=== PATIENT | male | born 1965 | race Caucasian/White ===

== ENCOUNTER → 2019-06-06 10:54 | Outpatient (CLI) | payer OTHER, SELFPAY ==
--- NOTE | 2019-06-06 11:21 | DI.RAD.S_ITS ---
PROCEDURE: XR HAND RT MIN 3V INDICATIONS: arthral TECHNIQUE: 3 views of the hand(s) acquired. COMPARISON: None. FINDINGS: Bones: No fractures or dislocations. Carpal bones are normally aligned. No suspicious bony lesions. No significant degenerative changes of the right hand are appreciated. No osseous erosions are evident. Soft tissues: No suspicious soft tissue calcifications. IMPRESSION: No significant degenerative changes of the hand. No osseous erosions. Dictated by: Ben Mcpherson M.D. on 06/06/2019 at 14:17 Approved by: Ben Mcpherson M.D. on 06/06/2019 at 14:18
--- NOTE | 2019-06-06 11:21 | DI.RAD.S_ITS ---
PROCEDURE: XR HAND LT MIN 3V INDICATIONS: arthral TECHNIQUE: 3 views of the hand(s) acquired. COMPARISON: None. FINDINGS: Bones: No fractures or dislocations. Carpal bones are normally aligned. No suspicious bony lesions. At least mild degenerative changes of the basal joint of the thumb are present. No definite osseous erosions are appreciated. Soft tissues: No suspicious soft tissue calcifications. IMPRESSION: Mild degenerative changes of the left hand. Dictated by: Ben Mcpherson M.D. on 06/06/2019 at 14:20 Approved by: Ben Mcpherson M.D. on 06/06/2019 at 14:21
--- NOTE | 2019-06-06 11:21 | DI.RAD.S_ITS ---
PROCEDURE: XR KNEE RT 3V INDICATIONS: arthral TECHNIQUE: 3 views of the knee were acquired. COMPARISON: [facility], , KNEE 3V RIGHT, 08/15/2011, 10:34. FINDINGS: Bones: No fractures or dislocations. No suspicious bony lesions. Bone mineralization is within normal limits. No osseous erosions are identified. Small developing marginal osteophytes are noted within the distal femoral compartment along the margins of the articular surface of the patella. Soft tissues: No joint effusion. No suspicious soft tissue calcifications. IMPRESSION: Early degenerative changes of the patellofemoral compartment. Dictated by: Ben Mcpherson M.D. on 06/06/2019 at 14:21 Approved by: Ben Mcpherson M.D. on 06/06/2019 at 14:22
--- NOTE | 2019-06-06 11:21 | DI.RAD.S_ITS ---
PROCEDURE: XR ANKLE RT MIN 3V INDICATIONS: arthral TECHNIQUE: 3 views of the ankle were acquired. COMPARISON: [facility], CR, FOOT 3V RIGHT, 09/18/2011, 13:11. FINDINGS: Bones: No fractures or dislocations. Ankle mortise is normally aligned. No suspicious bony lesions. No significant degenerative changes are present. No osseous origins are identified. Soft tissues: No tibiotalar joint effusion. Achilles tendon appears normal. IMPRESSION: Unremarkable right ankle radiographs. Dictated by: Ben Mcpherson M.D. on 06/06/2019 at 14:18 Approved by: eBn Mcpherson M.D. on 06/06/2019 at 14:19
--- NOTE | 2019-06-06 11:21 | DI.RAD.S_ITS ---
PROCEDURE: XR KNEE LT 3V INDICATIONS: arthral TECHNIQUE: 3 views of the knee were acquired. COMPARISON: [facility], , KNEE 3V LEFT, 08/15/2011, 10:33. FINDINGS: Bones: No fractures or dislocations. No suspicious bony lesions. No osseous erosions are evident. There may be an early developing marginal osteophytes within the patellofemoral compartment. The joint spaces are well-maintained. Soft tissues: No joint effusion. No suspicious soft tissue calcifications. IMPRESSION: Possible early degenerative changes of the patellofemoral compartment of the left knee. Dictated by: Ben Mcpherson M.D. on 06/06/2019 at 14:19 Approved by: Ben Mcpherson M.D. on 06/06/2019 at 14:20
--- NOTE | 2019-06-06 11:21 | DI.RAD.S_ITS ---
PROCEDURE: XR ANKLE LT MIN 3V INDICATIONS: arthral TECHNIQUE: 3 views of the ankle were acquired. COMPARISON: None. FINDINGS: Bones: No fractures or dislocations. Ankle mortise is normally aligned. No suspicious bony lesions. No significant degenerative changes of the midfoot or hindfoot joints are appreciated. The bone mineralization is within normal limits. No osseous erosions are evident. Soft tissues: No tibiotalar joint effusion. Achilles tendon appears normal. IMPRESSION: Unremarkable left ankle radiographs. Dictated by: Ben Mcpherson M.D. on 06/06/2019 at 14:18 Approved by: Ben Mcpherson M.D. on 06/06/2019 at 14:18
[2019-06-06 12:31] LABS: Alanine Aminotransferase 26 IU/L (<50); Albumin Globulin Ratio 1.6 (1.0-2.8); Alkaline Phosphatase 107 U/L (38-126); Aspartate Aminotransferase 18 IU/L (17-59); BUN Creatinine Ratio 17.1 (6-22); Bilirubin Total 0.7 mg/dL (0.2-1.3); Blood Urea Nitrogen 12 mg/dL (9-20); C-Reactive Protein Quant 0.8 mg/dL (<1.0); Calcium 9.7 mg/dL (8.4-10.2); Carbon Dioxide 29 mmol/L (22-32); Chloride 93 mmol/L (98-107); Estimated Glomerular Filt Rate > 60.0 mL/min (>60); Globulin 3.1 g/dL (1.7-4.1); HDL Cholesterol 43 mg/dL (40-60); HEMOLYSIS < 15 (0-50); Potassium 4.3 mmol/L (3.4-5.1); Sodium 135 mmol/L (137-145); Total Protein 8.1 g/dL (6.3-8.2); Uric Acid 3.1 mg/dL (3.5-8.5)
[2019-06-06 12:37] LABS: Add Manual Diff / Slide Review NO; Basophils Absolute Auto 0 /uL (0-100); Basophils Percent Auto 0.5 % (0-2); Eosinophils Absolute Auto 100 /uL (0-450); Eosinophils Percent Auto 1.5 % (2-4); Hemoglobin 16.1 g/dL (13.5-17.5); Lymphocytes Absolute Auto 2100 /uL (1100-4500); Lymphocytes Percent Auto 26.9 % (25-40); Mean Corpuscular HGB Conc 35.7 % (30-36); Mean Corpuscular Hemoglobin 32.5 PG (26-34); Mean Corpuscular Volume 90.9 fL (80-100); Monocytes Absolute Auto 500 /uL (0-900); Monocytes Percent Auto 5.9 % (3-14); Neutrophils Absolute Auto 5200 /uL (1500-7000); Neutrophils Percent Auto 65.2 % (50-75); Platelet Count 280 X10^3/uL (150-400); Red Blood Cell Count 4.96 X10^6/uL (4.5-5.9); Red Cell Distribution Width 12.7 % (11.6-14.8)
[2019-06-06 12:45] LABS: Cholesterol 357 mg/dL (140-199); Glucose 504 mg/dL (70-100); Triglycerides 660 mg/dL (35-150)
[2019-06-06 12:47] LABS: Hemoglobin A1C% w Est Avg Glu > 14.0 % (4.0-6.0); Rheumatoid Factor < 8.5 IU/mL (<12.0)
[2019-06-06 13:00] LABS: Prostate Specific Antigen Scrn 1.04 ng/mL (0.1-4.0); Thyroid Stimulating Hormone 1.47 uIU/mL (0.47-4.68)
[2019-06-06 13:03] LABS: Erythrocyte Sedimentation Rate 11 MM/HR (0-15)
[2019-06-08 22:45] LABS: ANA Screen, IFA NEGATIVE (NEGATIVE)
== END ==
PROVIDERS: PCP Family Medicine; Visit Provider Family Medicine
DX: M25.50 Pain in unspecified joint (principal)
CPT/HCPCS: 36415; 73130; 73562; 73610; 80053; 80061; 83036; 84443; 84550; 85025; 85651; 86038; 86140; 86430; G0103

== ENCOUNTER → 2019-06-24 10:51 | Outpatient (CLI) | payer OTHER, SELFPAY ==
[2019-06-24 12:52] LABS: Hemoglobin A1C% w Est Avg Glu 13.7 % (4.0-6.0)
[2019-06-24 13:13] LABS: BUN Creatinine Ratio 25.7 (6-22); Blood Urea Nitrogen 18 mg/dL (9-20); Calcium 9.4 mg/dL (8.4-10.2); Carbon Dioxide 26 mmol/L (22-32); Chloride 98 mmol/L (98-107); Estimated Glomerular Filt Rate > 60.0 mL/min (>60); Glucose 284 mg/dL (70-100); HEMOLYSIS < 15 (0-50); Potassium 4.7 mmol/L (3.4-5.1); Sodium 136 mmol/L (137-145)
[2019-06-24 13:53] LABS: Thyroid Stimulating Hormone 0.63 uIU/mL (0.47-4.68)
[2019-06-24 14:18] LABS: Folate > 20.0 ng/mL (2.76-20.0); Vitamin B12 728 pg/mL (239-931)
== END ==
PROVIDERS: PCP Family Medicine; Visit Provider Family Medicine
DX: E11.9 Type 2 diabetes mellitus without complications (principal); E78.2 Mixed hyperlipidemia; I10 Essential (primary) hypertension; R20.0 Anesthesia of skin; R20.2 Paresthesia of skin; R61 Generalized hyperhidrosis
CPT/HCPCS: 36415; 80048; 82607; 82746; 83036; 84443

== ENCOUNTER → 2019-07-06 13:52 | Outpatient (CLI) | payer OTHER, SELFPAY ==
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
== END ==
PROVIDERS: PCP Family Medicine; Visit Provider Family Medicine
DX: E11.21 Type 2 diabetes mellitus with diabetic nephropathy (principal); Z79.84 Long term (current) use of oral hypoglycemic drugs; Z71.3 Dietary counseling and surveillance
CPT/HCPCS: G0108

== ENCOUNTER → 2019-07-12 14:27 | Outpatient (CLI) | payer OTHER, SELFPAY ==
--- NOTE | 2019-07-12 15:58 | DIET.PN ---
Diabetes: Healthy Eating 1 Intervention: ?Discussed pathophysiology of diabetes and impact of nutrition/diet on blood sugar control.? Discussed fed versus non-fed state.?? ?Deviewed importance of Balance, Variety, and Moderation. ?Discussed the effect of carbohydrates/protein/fat on blood sugar control.? ?Stressed importance of consistent carbohydrate intake at each meal and provided instructions for recommended servings/portions of carbohydrates/protein per meal. Provided educational material. ?Reviewed carbohydrate counting and measuring carbohydrate content via serving sizes and reading nutrition labels.? Provided handouts.?? ?Discussed the difference between simple versus complex carbohydrates and the effect of fiber on blood sugar control.? Discussed various methods to increase fiber content in diet. ?Discussed the plate method for creating more carbohydrate conscious balanced meals. ?Stressed importance of meal timing and not going >4-5 hours between meals. Encouraged adding protein to evening snack to support glucose control overnight. ?Discussed importance of making dietary habits part of lifestyle change.
== END ==
PROVIDERS: PCP Family Medicine; Visit Provider Family Medicine
DX: E11.21 Type 2 diabetes mellitus with diabetic nephropathy (principal); Z71.3 Dietary counseling and surveillance
CPT/HCPCS: G0109

== ENCOUNTER → 2019-07-22 09:42 | Outpatient (CLI) | payer OTHER, SELFPAY ==
--- NOTE | 2019-07-22 12:58 | DIET.PN ---
Diabetes: Healthy Eating 2 Intervention: Fats effects on glucose, weight, heart disease, cholesterol Sat Vs Unsat Protein- animal and plant based options Low, med, high fat meats Sugar substitutes Sodium Health claims Grocery shopping guidelines Eating away from home Alcohol Sick day guidelines
== END ==
PROVIDERS: PCP Family Medicine; Visit Provider Family Medicine
DX: E11.21 Type 2 diabetes mellitus with diabetic nephropathy (principal); Z71.3 Dietary counseling and surveillance
CPT/HCPCS: G0109

== ENCOUNTER → 2019-09-19 10:42 | Outpatient (CLI) | payer OTHER, SELFPAY ==
[2019-09-19 12:56] LABS: BUN Creatinine Ratio 23.8 (6-22); Blood Urea Nitrogen 19 mg/dL (9-20); Calcium 10.4 mg/dL (8.4-10.2); Carbon Dioxide 26 mmol/L (22-32); Chloride 97 mmol/L (98-107); Cholesterol 141 mg/dL (140-199); Estimated Glomerular Filt Rate > 60.0 mL/min (>60); Glucose 172 mg/dL (70-100); HDL Cholesterol 46 mg/dL (40-60); HEMOLYSIS 21 (0-50); LDL Cholesterol Calculated 48 mg/dL (<100); Potassium 4.5 mmol/L (3.4-5.1); Sodium 139 mmol/L (137-145); Triglycerides 235 mg/dL (35-150)
== END ==
PROVIDERS: PCP Family Medicine; Referring Provider Family Medicine; Visit Provider Family Medicine
DX: E11.9 Type 2 diabetes mellitus without complications (principal)
CPT/HCPCS: 36415; 80048; 80061; 83036

== ENCOUNTER → 2020-05-17 10:24 | Outpatient (CLI) | payer OTHER, SELFPAY ==
--- NOTE | 2020-05-17 10:29 | DI.RAD.S_ITS ---
PROCEDURE: XR KNEE RT 3V INDICATIONS: Back Pain TECHNIQUE: 3 views of the knee were acquired. COMPARISON: [facility], CR, XR KNEE LT 3V, 06/06/2019, 11:48. FINDINGS: Bones: No fracture. Scattered degenerative subchondral sclerosis and spurring. Soft tissues: No joint effusion. No suspicious soft tissue calcifications. IMPRESSION: Mild degenerative changes as above. If the patient's pain or other symptoms persist, consider further evaluation with MRI Dictated by: Henry Renee M.D. on 05/17/2020 at 14:30 Approved by: Henry Renee M.D. on 05/17/2020 at 14:40
--- NOTE | 2020-05-17 10:29 | DI.RAD.S_ITS ---
PROCEDURE: XR HIP W PEL IF DONE LT MIN 4V INDICATIONS: Back Pain TECHNIQUE: AP pelvis with lateral view(s) of the left and right hip(s). COMPARISON: None. FINDINGS: Bones: No fractures or dislocations. Pelvic ring appears intact. No suspicious bony lesions. Chronic right hamstring origin tendinopathy, with associated calcification. Lumbar spondylosis and facet arthropathy. Mild bilateral hip joint degeneration Soft tissues: The visualized bowel gas pattern is normal. No suspicious soft tissue calcifications. IMPRESSION: Mild bilateral hip joint degeneration. Lower lumbar spondylosis and facet arthropathy. Dictated by: Henry Renee M.D. on 05/17/2020 at 13:58 Approved by: Henry Renee M.D. on 05/17/2020 at 14:00
--- NOTE | 2020-05-17 10:29 | DI.RAD.S_ITS ---
PROCEDURE: XR LUMBAR SPINE 2-3V INDICATIONS: Back Pain TECHNIQUE: 3 views of the lumbar spine were acquired. COMPARISON: [facility], CR, XR LUMBAR SPINE WITH OLBIQUES PLUS FLEXION EXTENSION, 02/27/2020, 13:20. FINDINGS: Bones: No fracture. Multilevel degenerative endplate sclerosis and spurring. Diffuse facet arthropathy. Mild narrowing of the L4-L5 and L5-S1 disc spaces. Trace anterolisthesis of L5 on S1. Soft tissues: Overlying bowel gas pattern is normal. No suspicious soft tissue calcifications. IMPRESSION: Multilevel lumbar spondylosis and facet arthropathy. No interval change. Dictated by: Henry Renee M.D. on 05/17/2020 at 13:55 Approved by: Henry Renee M.D. on 05/17/2020 at 13:57
--- NOTE | 2020-05-17 10:29 | DI.RAD.S_ITS ---
PROCEDURE: XR KNEE LT 3V INDICATIONS: Back Pain TECHNIQUE: 3 views of the knee were acquired. COMPARISON: [facility], , XR KNEE LT 3V, 06/06/2019, 11:48. FINDINGS: Bones: No fracture. Scattered degenerative subchondral sclerosis and spurring. Mild lateral patellar tilt which is unchanged Soft tissues: No joint effusion. No suspicious soft tissue calcifications. IMPRESSION: Mild degenerative changes as above. Dictated by: Henry Renee M.D. on 05/17/2020 at 14:40 Approved by: Henry Renee M.D. on 05/17/2020 at 14:41
[2020-05-17 12:18] LABS: BUN Creatinine Ratio 25.6 (6-22); Blood Urea Nitrogen 21 mg/dL (9-20); Calcium 9.6 mg/dL (8.4-10.2); Carbon Dioxide 34 mmol/L (22-32); Chloride 99 mmol/L (98-107); Estimated Glomerular Filt Rate > 60.0 mL/min (>60); Glucose 126 mg/dL (70-100); HEMOLYSIS < 15 (0-50); Potassium 4.3 mmol/L (3.4-5.1); Sodium 137 mmol/L (137-145)
[2020-05-17 12:27] LABS: Hemoglobin A1C% w Est Avg Glu 6.2 % (4.0-6.0)
== END ==
PROVIDERS: PCP Family Medicine; Referring Provider Family Medicine; Visit Provider Family Medicine
DX: M54.5 Low back pain (principal); E11.9 Type 2 diabetes mellitus without complications
CPT/HCPCS: 36415; 72100; 73522; 73562; 80048; 83036

== ENCOUNTER 2020-08-31 10:30 | Outpatient (RCR) | payer OTHER, SELFPAY ==
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
--- NOTE | 2020-08-20 17:25 | PT.OPPOC ---
Physical, Occupational & Speech Therapy At [facility] Current Diagnoses Other chronic pain (08/20/20) Pain in unspecified joint (08/20/20) Pain in right knee (08/20/20) Pain in left knee (08/20/20) Dorsalgia, unspecified (08/20/20) Muscle weakness (generalized) (08/20/20) Abnormal posture (08/20/20) Visit Care Team Role Provider Type Ralf Rosa DO Attending Provider Physician Family Provider Primary Care Provider Referring Provider Specialty: Family Practice Address: [address] [place] [address], [facility] Email: Plan Of Care PT-OP-T Assessment and Plan Start: 08/14/20 18:06 Freq: Status: Active Protocol: Document 08/20/20 10:40 LRN (Rec: 08/20/20 12:19 LRN [id number]) Physical Therapy Assessment Rehab Potential Rehabilitation Potential Fair Evaluation Complexity Number of Personal Factors/Comorbidities 3 or More Number of Body Systems Impaired 4 or More Clinical Presentation at Evaluation Evolving Impairments Impairments Activity Tolerance,Gait,Pain, Posture,ROM,Soft Tissue Mobility,Strength Goals Two Impairment LE pain/sensation changes. Short Term Goal (STG) Pt will be educated in self usp program of soft tissue mobilization. STG Duration 09/03/20 Short Order Fry Cook Goal (LTG) Pt will be able to ween from his pain medication (pt reports oxycodone). LTG Duration 09/24/20 One Impairment Lacks appropriate self care HEP Short Term Goal (STG) Pt will be independent in a self care HEP of therapeutic exercise. STG Duration 08/27/20 Care Home Goal (LTG) Pt will be able to walk to mailbox and back with pain less than 9/10. LTG Duration 09/24/20 Assessment Summary Assessment Pt's LE pain was reproduced primarily with ambulation. His ankle pain was reproduced with muscle testing of the ankle PF's & DF's, knee pain was not reproduced during knee assessment. He demonstrated a +Slump Test bilaterally but his PSLR was 65 deg's left and 70 deg's right showing a possible low back involvement on primarily on the left side. No other significant signs presented as low back involvement. He has tightness and weakness of his hips bilaterally and is very sensitive to pressure on his tissues of the lower legs, which might lead me to think he has general soft tissue dysfunction. His sensation changes are in not a specific dermatome; therefore doesn't appear to be lumbar neural related. The pt is very financially limited; therefore he will be limited in his benefit from physical therapy treatment of being placed on a self care HEP in 1-2 visits. The keno terminal operator goals are what the pt can work to achieve on his own. He would benefit from follow up visits in the future for progression of his program if shows improvement on his own HEP. The pt feels returning to therapy will depend on his financial status. Physical Therapy Plan Frequency and Duration Frequency of Treatment 1x/Week Plan of Care Start Date 08/20/20 Plan of Care End Date 09/24/20 Therapeutic Interventions Therapeutic Interventions Home Exercise Program,Manual Therapy,Patient/Caregiver Education,Self-Care/Home Management,Soft Tissue Mobilization,Therapeutic Exercises Modalities Cold Pack/Ice Massage,Hot Packs Next Visit Focus/Plan Next Note Type Treatment Note Next Visit Plan HEP next visit, with follow up visit for self care STM if pt feels he is financially able to return. HEP: Bilateral hip ROM and strengthening, bilateral knee ROM and strengthening for stair ambulation (L knee flexion weaker than R), and ankle ROM exercises. Teach best way to get up off floor to minimize pain. If 2nd visit: teach STM to lower legs (gastrocnemius) , hot/cold education of contrast bath to improve sensation, and to teach proper posturing and body mechanics to minimize stress on knees, ankles and feet as possible. Plan of Care Dates Plan of Care Start Date 08/20/20 Plan of Care End Date 09/24/20 Electronically Signed by: Delia Bajwa, PT 08/23/20 3035 Please Sign and Return: I have reviewed this Plan of Care and certify that the skilled therapy services above are required to meet the patient?s needs. Physician Signature Date Printed Name and Credentials Clinical Instructor Signature Printed Name and Credentials
--- NOTE | 2020-08-31 12:17 | PT-OP ANOTE ---
Pt called to request cancel of next appointment and hold open of his chart until he hears back from his insurance on coverage for therapy. Pt informed that if we do not hear back from him before 09/24/20 (POC expiration), then he would be discharged from therapy. Pt agreeable and states he will call back after he figures out his insurance and costs.
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
--- NOTE | 2020-10-16 16:53 | PT-OP ANOTE ---
Message was left 09/07/20 requesting cancel of appointment with message he will call when insurance will pay. Pt has not called back; therefore will discharge pt due to lack of attendance.
--- NOTE | 2020-10-16 16:58 | PT-OP ANOTE ---
Msg left informing pt if he does not call back to inform if he will be coming back to therapy by end of week (10/19/20), he will be discharged from therapy and to restart therapy he will need a new referral.
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
== END 2020-10-26 08:30 ==
LOC: PHYS 10:30
PROVIDERS: Family Provider Family Medicine; PCP Family Medicine; Referring Provider Family Medicine; Visit Provider Family Medicine
DX: M25.561 Pain in right knee (principal); M25.562 Pain in left knee; G89.29 Other chronic pain; M54.9 Dorsalgia, unspecified; M25.50 Pain in unspecified joint; M62.81 Muscle weakness (generalized); R29.3 Abnormal posture
CPT/HCPCS: 97110; 97162; 97535

== ENCOUNTER → 2020-10-15 08:59 | Outpatient (CLI) | payer OTHER, SELFPAY ==
[2020-10-15 09:59] LABS: Hemoglobin A1C% w Est Avg Glu 5.9 % (4.0-6.0)
[2020-10-15 10:10] LABS: Erythrocyte Sedimentation Rate 4 MM/HR (0-15)
[2020-10-15 10:58] LABS: Cholesterol 263 mg/dL (140-199); HDL Cholesterol 55 mg/dL (40-60); LDL Cholesterol Calculated 166 mg/dL (<100); Triglycerides 212 mg/dL (35-150)
[2020-10-15 10:59] LABS: C-Reactive Protein Quant < 0.5 mg/dL (<1.0)
[2020-10-15 11:28] LABS: TSH w/ Reflex to FT4 0.85 uIU/mL (0.47-4.68)
[2020-10-17 15:08] LABS: ANA Screen, IFA Negative (.)
== END ==
PROVIDERS: Family Provider Family Medicine; PCP Family Medicine; Referring Provider Family Medicine; Visit Provider Family Medicine
DX: E11.9 Type 2 diabetes mellitus without complications (principal); E78.2 Mixed hyperlipidemia; F41.9 Anxiety disorder, unspecified; I10 Essential (primary) hypertension; G89.4 Chronic pain syndrome; R29.898 Other symptoms and signs involving the musculoskeletal system
CPT/HCPCS: 36415; 80061; 83036; 84443; 85651; 86038; 86140

== ENCOUNTER → 2020-11-28 09:54 | Outpatient (CLI) | payer OTHER, SELFPAY ==
--- NOTE | 2020-11-28 09:57 | DI.MRI.S_ITS ---
PROCEDURE: MR LUMBAR SPINE WO CON INDICATIONS: bilateral leg weakness and pain TECHNIQUE: Noncontrast sagittal T1 spin echo and T2 fast echo, sagittal STIR, axial T1 and T2 fast spin echo through the lumbar spine. In cases with scoliosis, additional coronal T2 fast spin echo may be performed. The patient declined the scheduled contrast injection and this study was performed without IV contrast. COMPARISON: [facility], CT, ABDOMEN/PELVIS WITH CONTRAST, 11/13/2007, 21:12. [facility], CR, XR LUMBAR SPINE 2-3V, 05/17/2020, 11:04. FINDINGS: Image quality: Diagnostic, with note made of motion artifact. Alignment and Curvature: There is normal bony alignment. Bone Marrow: Marrow is of normal overall signal. No acute vertebral body compression fractures. Spinal Cord: Conus medullaris terminates at the T12-L1 level. Visualized cord demonstrates normal signal and size. Paraspinous Soft Tissues: No paravertebral masses. T12-L1: Normal appearance. L1-L2: The disc height is well-preserved. Loss of disc signal is seen at this level. A minimal to mild disc bulge is seen, with a right foraminal disc protrusion. There is mild facet hypertrophy seen. There is moderate bilateral neural foraminal narrowing seen. No significant central canal narrowing is seen. L2-L3: The disc height is well-preserved. Loss of disc signal is seen at this level. Mild to moderate disc bulge is seen, which is eccentric to the right. Mild to moderate facet hypertrophy is seen. There is moderate right-sided and [id number] left-sided neural foraminal narrowing seen. Mild central canal narrowing is seen. L3-L4: The disc height is well-preserved. Loss of disc signal is seen at this level. Mild to moderate disc bulge is seen, which is eccentric to the right. Mild to moderate facet hypertrophy is seen. Moderate bilateral neural foraminal narrowing is seen. Minimal central canal narrowing is seen. L4-L5: The disc height is well-preserved. Loss of disc signal is seen at this level. Moderate disc bulge is seen, with a central disc protrusion. There is an associated annular fissure seen, as on series 2, image 10. Mild to moderate facet hypertrophy is seen. There is at least moderate bilateral neural foraminal narrowing seen, right worse than left. There is a mild degree of compression seen upon the exiting right L4 nerve root. Mild to moderate central canal narrowing is seen. L5-S1: The disc height and disc signal are relatively well preserved. Mild generalized disc bulge is seen. There is moderate right-sided and mild left-sided facet hypertrophy seen. There is minimal left-sided and moderate right-sided neural foraminal narrowing seen. No significant central canal narrowing is seen. IMPRESSION: Multiple levels of lumbar spine degenerative change are seen, which are likely age-appropriate. At L4-L5, there is a degree of compression seen upon the exiting right L4 nerve root. An annular fissure can be seen posteriorly at L4-L5. Dictated by: Ra Guthrie M.D. on 11/28/2020 at 9:53 Approved by: Ra Guthrie M.D. on 11/28/2020 at 9:59
== END ==
PROVIDERS: Family Provider Family Medicine; PCP Family Medicine; Referring Provider Family Medicine; Visit Provider Family Medicine
DX: G89.4 Chronic pain syndrome (principal); R29.898 Other symptoms and signs involving the musculoskeletal system; M51.36 Other intervertebral disc degeneration, lumbar region; R53.1 Weakness
CPT/HCPCS: 72148

== ENCOUNTER → 2021-04-30 09:57 | Outpatient (CLI) | payer OTHER, SELFPAY ==
[2021-04-30 10:48] LABS: Hemoglobin A1C% w Est Avg Glu 7.7 % (4.0-6.0)
[2021-04-30 11:11] LABS: Cholesterol 130 mg/dL (140-199); HDL Cholesterol 55 mg/dL (40-60); LDL Cholesterol Calculated 30 mg/dL (<100); Triglycerides 224 mg/dL (35-150)
[2021-05-01 19:12] LABS: Lead, Blood < 1 ug/dL (0-4)
== END ==
PROVIDERS: PCP Family Medicine; Referring Provider Family Medicine; Visit Provider Family Medicine
DX: E11.9 Type 2 diabetes mellitus without complications (principal); E78.2 Mixed hyperlipidemia; I10 Essential (primary) hypertension; M25.50 Pain in unspecified joint; M79.10 Myalgia, unspecified site; R41.3 Other amnesia; Z77.011 Contact with and (suspected) exposure to lead
CPT/HCPCS: 36415; 80061; 82175; 83036; 83655; 83825

== ENCOUNTER 2021-11-16 18:10 | Emergency (ER) | payer OTHER, SELFPAY ==
[2021-11-16] VITALS (48 sets, daily range): BP systolic 90–151; BP diastolic 54–88; PULSE 84–118; RESP 11–39; TEMP 37.7; O2SAT 94–100; BMI 32.1
--- NOTE | 2021-11-16 | DI.CT.S_ITS ---
PROCEDURE: CT HEAD/BRAIN WO CON INDICATIONS: FALL TECHNIQUE: Noncontrast 4.5 mm thick angled axial sections acquired from the foramen magnum to the vertex, with coronal and sagittal reformats. For radiation dose reduction, the following was used: automated exposure control, adjustment of mA and/or kV according to patient size. COMPARISON: None. FINDINGS: Image quality: Excellent. CSF spaces: Basal cisterns are patent. No extra-axial fluid collections. The ventricles are symmetric in size and shape. Brain: No intracranial bleeds or masses. There is cerebral volume loss for age, with resultant ventricular and sulcal prominence. There are periventricular and deep white matter chronic small vessel ischemic changes. Skull and face: Calvarium and visualized facial bones appear intact, without suspicious lesions. Sinuses: Visualized sinuses and mastoids are clear. IMPRESSION: No evidence acute intracranial process. Dictated by: Sergio Bowen M.D. on 11/16/2021 at 19:17 Approved by: Sergio Bowen M.D. on 11/16/2021 at 19:18
--- NOTE | 2021-11-16 18:23 | DI.RAD.S_ITS ---
PROCEDURE: XR CHEST 1V INDICATIONS: suspected sepsis TECHNIQUE: One view of the chest was acquired. COMPARISON: None. FINDINGS: Surgical changes and devices: None. Lungs and pleura: Lungs are clear. No pleural effusions or pneumothorax. Mediastinum: Mediastinal contours appear normal. Heart size is normal. Bones and chest wall: No suspicious bony lesions. Overlying soft tissues appear unremarkable. IMPRESSION: No evidence acute pulmonary process. Dictated by: Sergio Bowen M.D. on 11/16/2021 at 19:17 Approved by: Sergio Bowen M.D. on 11/16/2021 at 19:17
--- NOTE | 2021-11-16 18:27 | DI.CT.S_ITS ---
PROCEDURE: CT SOFT TISSUE NECK W CON INDICATIONS: large dental abscess, tense left anterior neck TECHNIQUE: After the administration of intravenous contrast, 3.0 mm axial sections acquired from the sella to the aortic arch. Additional oblique axial 3.0 mm sections acquired through the pharynx. 3 mm thick coronal and sagittal reformats were generated. For radiation dose reduction, the following was used: automated exposure control. COMPARISON: None. FINDINGS: Image quality: Excellent. Lymph nodes: Reactive left cervical adenopathy. No lymph nodes suspicious for malignancy. Vessels: Visualized vasculature appears patent. Neck spaces: The oropharynx, nasopharynx, and pharynx demonstrate no mucosal lesions. However, the airway is deviated slightly to the right and at gets quite narrowed The vocal cords, false vocal cords, pyriform sinuses, epiglottis, vallecula, and tongue base all appear normal. Extramucosal spaces appear unremarkable. Glands: The parotid and submandibular glands appear normal. Thyroid gland is unremarkable as visualized. Miscellaneous: Visualized brain and orbits appear normal. Lung apices appear clear. There is extensive gas in the tissues immediately inferior to the left body of the mandible with gas present medial to the left body of mandible at the base of the tongue. The most posterior left inferior molar has significant periapical lucency. There is a cavity within this tooth. There is a probable periapical abscess. Bones: No suspicious bony lesions. Visualized sinuses and mastoids appear unremarkable. IMPRESSION: 1. Extensive gas present in the tissues superficial and deep to the body of the left mandible.. Consider necrotizing fasciitis of the tissues subjacent to the mandible. There is a probable periapical abscess involving the most posterior inferior left tooth. 2. There is mild deviation of the air column to the right and there is narrowing of the air,. Comment: Findings were discussed with Dr. Gonzales on 11/16/2021 at 1929 hours. Dictated by: Sergio Bowen M.D. on 11/16/2021 at 19:18 Approved by: Sergio Bowen M.D. on 11/16/2021 at 19:32
--- NOTE | 2021-11-16 18:30 | PC.NURSE ---
Pt has history of broken tooth. Reports 3 days ago noticed some swelling in his neck which has continued to increase. Pt has hard, palpable area from left jaw around front of neck, painful to touch. Denies difficulty breathing or swallowing. Has been eating soft foods and drinking without issue at home.
[2021-11-16] MEDS: KETOROLAC 30 MG/ML VIAL 15 MG IV (18:43)
[2021-11-16] MEDS: SODIUM CHLORIDE 0.9% 1,914 ML 638 ML IV (18:59)
[2021-11-16] MEDS: dexAMETHasone 20 MG in SODIUM CHLORIDE 0.9% 50 ML 208 ML IV (19:00)
--- NOTE | 2021-11-16 19:05 | ED_ITS ---
HPI - Dental/Oral General Chief complaint: Dental/Oral Stated complaint: Abcess molar left lower Time Seen by Provider: 11/16/21 18:27 Source: patient and family Mode of arrival: Wheelchair History of Present Illness HPI Narrative: 56-year-old male nonsmoker with a history of bilateral leg weakness, chronic pain, disc degeneration, polyneuropathy, type 2 diabetes, hyperlipidemia presents with family in the chief complaint of pain and swelling in his left anterior neck over the past few days. He states that he has had dental problems for quite some time and felt a tooth fracture. Since then he has developed swelling. He is having a hard time opening his jaw but denies any difficulty swallowing, controlling secretions or breathing. He denies fever but has had chills. He has had no nausea or vomiting but feels generally weak. He is not dizzy but is overall feeling unwell, he did fall yesterday and thinks he struck his head, stating fall was not associated with loss of consciousness, nausea or vomiting. He takes no blood thinners. Related Data Home Medications Medication Instructions Recorded Confirmed docusate sodium 100 mg capsule 100 mg PO .COMPLEX PRN #0 08/10/20 11/16/21 sennosides 8.6 mg-docusate sodium 1 tab-cap PO .COMPLEX 08/10/20 11/16/21 50 mg tablet (Colace 2-In-1) Previous Rx's Medication Instructions Recorded flash glucose sensor (FreeStyle #2 each 09/21/19 Alex 14 Day Sensor) blood sugar diagnostic (Precision #400 ea 07/24/20 Point Of Care Test) lancets 31 gauge #400 ea 07/24/20 dicyclomine 10 mg capsule 10 mg PO BID PRN #60 cap 01/24/21 flash glucose scanning reader #1 each 02/22/21 (FreeStyle Alex 14 Day Magnolia) tadalafil 5 mg tablet (Cialis) 5 mg PO DAILY PRN #20 tab 03/06/[address] #1 ea 05/02/21 metformin 1,000 mg tablet 1,000 mg PO BID #180 tab 05/02/21 flash glucose sensor (FreeStyle #2 each 06/28/21 Alex 14 Day Sensor) bupropion HCl 150 mg 24 hr tablet, 150 mg PO QAM #90 tab 12/20/21 extended release (Wellbutrin XL) rosuvastatin 10 mg tablet 10 mg PO DAILY #90 tab 08/26/21 omeprazole 20 mg capsule,delayed 20 mg PO BID PRN #180 cap 10/09/21 release amitriptyline 100 mg tablet 100 mg PO BEDTIME #90 tab 10/11/21 clonazepam 0.5 mg tablet 0.5 mg PO TID PRN #90 tab 10/11/21 duloxetine 60 mg capsule,delayed See Rx Instructions .ROUTE 10/11/21 release .COMPLEX #90 cap meloxicam 15 mg tablet 15 mg PO DAILY PRN #90 tab 10/18/21 Allergies Allergy/AdvReac Type Severity Reaction Status Date / Time ERYTHROMYCIN Allergy Mild GI Uncoded 11/16/21 17:46 ORAL STEROID Allergy Mild Uncoded 11/16/21 17:46 PENICILLIN Allergy Mild RASH Uncoded 11/16/21 17:46 Review of Systems Review of Systems Narrative: GENERAL: See HPI HEENT: See HPI RESPIRATORY: Denies dyspnea, cough, wheezing, hemoptysis, sputum. CARDIOVASCULAR: Denies chest pain, palpitations, orthopnea, edema, GASTROINTESTINAL: Denies nausea, vomiting, abdominal pain, diarrhea, constipation, melena. : Denies dysuria, frequency, incontinence, hematuria, urinary retention. MUSCULOSKELETAL: denies weakness, joint pain, or bony pain SKIN: Denies rash, skin lesions, or other NEUROLOGIC: Denies weakness, headache, numbness, change in speech, confusion, seizures, incoordination. PSYCHIATRIC: No concerning psychosocial issues. 12 point review of systems is negative except for those stated above Patient History Medical History (Updated 11/16/21 @ 21:15 by Brendan Gonzales DO) Bilateral foot pain Bilateral hand pain Bilateral knee pain Bilateral leg weakness Chronic hip pain, bilateral Chronic pain syndrome Constipation Disc degeneration, lumbar Dysesthesia Erectile dysfunction Polyneuropathy Surgical History History of placement of ear tubes (Unknown) History of tonsillectomy Family History Mother Age: 92 Alzheimer's disease Stroke Social History Smoking Status: Never smoker eating out: rarely or never Type(s) of exercise: walking Smoking Status: Never smoker alcohol intake frequency: 0-2 drinks per day Substance Use Type: does not use Exam Narrative Exam Narrative: GENERAL: [56] year old patient appears stated age. Well-developed patient, in mild distress. HEAD: Atraumatic. Normocephalic. EYES: Pupils equal round and reactive. Extraocular motions intact. No scleral icterus. No injection or drainage. ENT: Noted facial swelling, left anterior neck pain, swelling, erythema and induration. Trismus. Foul smelling. Nose without bleeding, purulent drainage. Throat without erythema, tonsillar hypertrophy or exudate. Airway patent. NECK: Trachea midline. Non tender CARDIOVASCULAR: Regular rate and rhythm without murmurs, gallops, or rubs. RESPIRATORY: Clear to auscultation. Breath sounds equal bilaterally. No wheezes, rales, or rhonchi. GASTROINTESTINAL: Abdomen soft, non-tender, nondistended. EXTREMITIES: No edema or joint tenderness. BACK: Nontender without deformity or crepitance. No flank tenderness. NEURO: AOx3. SKIN: No rash or erythema of visible areas Initial Vital Signs Initial Vital Signs: Vital Signs Temperature 100 F H 11/16/21 18:15 Pulse Rate 117 H 11/16/21 18:15 Respiratory Rate 18 11/16/21 18:15 Blood Pressure 151/81 H 11/16/21 18:15 Pulse Oximetry 98 11/16/21 18:15 Course Orders Ordered: ED Orders 11/16/21 18:23 XR chest 1V Stat EKG-12 Lead Stat RT Consult Eval and Treat NOW 11/16/21 18:27 CT soft tissue neck w con Stat Urinalysis and Microscopic Stat 11/16/21 18:29 COVID19 -Nasal RAPID/Pre-Proc Stat 11/16/21 18:40 Complete Blood Count AUTO DIFF Stat Comprehensive Metabolic Panel Stat Lactate (Lactic Acid) Stat Lipase Stat Procalcitonin Stat Troponin & CK Cardiac Panel Stat 11/16/21 19:20 Blood Culture Stat Sodium Chloride (Normal Saline 0.9%) 1,914 mls @ 638 mls/hr 30 ml/kg infuse over 3 hr (1914 ml) IV NOW ONE Stop: 11/16/21 21:26 Last Admin: 11/16/21 18:59 Dose: 638 mls/hr Documented by: JEN Vancomycin HCl/Dextrose (Vancomycin) 2,000 mg in 400 mls @ 200 mls/hr IV NOW ONE Stop: 11/16/21 22:39 Clindamycin Phosphate (Cleocin) 900 mg in 50 mls @ 50 mls/hr IV NOW ONE Stop: 11/16/21 22:04 Propofol (Propofol) 1,000 mg in 100 mls @ 2.708 mls/hr IV TITRATE GABRIELLA; Protocol Discontinued Medications Glycopyrrolate (Glycopyrrolate 0.4 Mg/2 Ml Vial) 0.4 mg IV NOW ONE Stop: 11/16/21 20:18 Last Admin: 11/16/21 20:32 Dose: 0.4 mg Documented by: Sodium Chloride (Normal Saline 0.9%) 1,000 mls @ 1,000 mls/hr IV BOLUS ONE Stop: 11/16/21 19:22 Dexamethasone 20 mg/ Sodium (Chloride) 52 mls @ 208 mls/hr IV NOW ONE Stop: 11/16/21 18:28 Last Admin: 11/16/21 19:00 Dose: 208 mls/hr Documented by: KSWALD Ampicillin Sodium/Sulbactam (Sodium 3 gm/ Sodium Chloride) 100 mls @ 100 mls/hr IV NOW ONE Stop: 11/16/21 18:28 Last Admin: 11/16/21 19:36 Dose: 100 mls/hr Documented by: Ketorolac Tromethamine (Ketorolac 30 Mg/Ml Vial) 15 mg IV NOW ONE Stop: 11/16/21 18:28 Last Admin: 11/16/21 18:43 Dose: 15 mg Documented by: AUPDIKE Lidocaine HCl (Lidocaine 2% Inj Mdv) 1 ml SUBCUT NOW ONE Stop: 11/16/21 20:18 Last Admin: 11/16/21 20:32 Dose: 1 ml Documented by: Midazolam HCl (Midazolam 2 Mg/2 Ml Vial) 1 mg IV NOW ONE Stop: 11/16/21 20:54 Oxymetazoline HCl (Oxymetazoline Nasal [place]rington 15 Ml) 2 sprays NASAL NOW ONE Stop: 11/16/21 20:18 Last Admin: 11/16/21 20:33 Dose: 2 sprays Documented by: Propofol (Propofol 200 Mg/20 Ml Vial) 5 mg IV NOW ONE Stop: 11/16/21 20:57 Propofol (Propofol 200 Mg/20 Ml Vial) 150 mg IV NOW ONE Stop: 04/16/22 21:02 Consultations Consultation #1: call to Dr. Henry (ENT) regarding concern for deep space infection, recommends transfer to tertiary care given complexity and need for multimodal approach Consultation #2: call to Dr. Callahan for perceived difficult airway images, transfer process initiated for [facility]/ Time: 19:35 Consultation #3: Dr. Gardiner ([facility]) happy to accept patient, [facility] en route ED physician ([facility]) informed by myself (Terrancev...?) My apologies, I didn't get correct spelling Time: 21:10 Vital Signs Vital signs: Vital Signs - 8 hr 11/16/21 18:15 Temperature 100 F H Pulse Rate 117 H Respiratory Rate 18 Blood Pressure 151/81 H Pulse Oximetry 98 MDM - Dental/Oral Lab Data Result diagrams: 11/16/21 18:40 11/16/21 18:40 Labs: Lab Results 11/16/21 11/16/21 11/16/21 Range/Units 18:40 18:40 18:40 WBC 12.4 H (4.5-11.0) X10^3/uL RBC 4.15 L (4.5-5.9) X10^6/uL Hgb 12.6 L (13.5-17.5) g/dL Hct 36.6 L (41-53) % MCV 88.1 (80-100) fL MCH 30.2 (26-34) PG MCHC 34.3 (30-36) % RDW 13.5 (11.6-14.8) % Plt Count 212 (150-400) X10^3/uL Neut % (Auto) 86.2 H (50-75) % Lymph % (Auto) 6.5 L (25-40) % Stephens % (Auto) 7.0 (3-14) % Eos % (Auto) 0.1 L (2-4) % Baso % (Auto) 0.2 (0-2) % Neut # (Auto) 87837 H (0778-1766) /uL Lymph # (Auto) 800 L (4476-3424) /uL Stephens # (Auto) 900 (0-900) /uL Eos # (Auto) 0 (0-450) /uL Baso # (Auto) 0 (0-100) /uL Sodium 133 L (137-145) mmol/L Potassium 4.0 (3.4-5.1) mmol/L Chloride 94 L (98-107) mmol/L Carbon Dioxide 28 (22-32) mmol/L BUN 16 (9-20) mg/dL Creatinine 0.69 (0.66-1.25) mg/dL Estimated GFR > 60 (>60) mL/min BUN/Creatinine Ratio 23.2 H (6-22) Glucose 286 H (70-100) mg/dL Lactate 1.9 (0.7-2.1) mmol/L Calcium 9.0 (8.4-10.2) mg/dL Total Bilirubin 0.7 (0.2-1.3) mg/dL AST 23 (17-59) IU/L ALT 27 (<50) IU/L Alkaline Phosphatase 95 (38-126) U/L Total Creatine Kinase 124 (55-170) U/L CK-MB (CK-2) 3.21 H (<2.37) ng/mL CK-MB (CK-2) Rel Index 2.6 (1.5-5.0) % Troponin I < 0.012 (0.01-0.034) ng/mL Total Protein 7.7 (6.3-8.2) g/dL Albumin 4.3 (3.5-5.0) g/dL Globulin 3.4 (1.7-4.1) g/dL Albumin/Globulin Ratio 1.3 (1.0-2.8) Lipase 25 (23-300) U/L Procalcitonin 0.22 (<0.5) ng/mL SARS-CoV-2 (PCR) (Negative) 11/16/21 Range/Units 18:55 WBC (4.5-11.0) X10^3/uL RBC (4.5-5.9) X10^6/uL Hgb (13.5-17.5) g/dL Hct (41-53) % MCV (80-100) fL MCH (26-34) PG MCHC (30-36) % RDW (11.6-14.8) % Plt Count (150-400) X10^3/uL Neut % (Auto) (50-75) % Lymph % (Auto) (25-40) % Stephens % (Auto) (3-14) % Eos % (Auto) (2-4) % Baso % (Auto) (0-2) % Neut # (Auto) (8930-8704) /uL Lymph # (Auto) (9458-1147) /uL Stephens # (Auto) (0-900) /uL Eos # (Auto) (0-450) /uL Baso # (Auto) (0-100) /uL Sodium (137-145) mmol/L Potassium (3.4-5.1) mmol/L Chloride (98-107) mmol/L Carbon Dioxide (22-32) mmol/L BUN (9-20) mg/dL Creatinine (0.66-1.25) mg/dL Estimated GFR (>60) mL/min BUN/Creatinine Ratio (6-22) Glucose (70-100) mg/dL Lactate (0.7-2.1) mmol/L Calcium (8.4-10.2) mg/dL Total Bilirubin (0.2-1.3) mg/dL AST (17-59) IU/L ALT (<50) IU/L Alkaline Phosphatase (38-126) U/L Total Creatine Kinase (55-170) U/L CK-MB (CK-2) (<2.37) ng/mL CK-MB (CK-2) Rel Index (1.5-5.0) % Troponin I (0.01-0.034) ng/mL Total Protein (6.3-8.2) g/dL Albumin (3.5-5.0) g/dL Globulin (1.7-4.1) g/dL Albumin/Globulin Ratio (1.0-2.8) Lipase (23-300) U/L Procalcitonin (<0.5) ng/mL SARS-CoV-2 (PCR) Negative (Negative) Imaging Data Soft Tussue Neck: Radiologist's Impression: Raj Bui??56??M??1965 ? Allergy/Adv: [ERYTHROMYCIN], [ORAL STEROID], [PENICILLIN] (More??) Close Soft Tissue Neck CT (Signed) Sergio Bowen - 11/16/21 Chest X-Ray (Signed) Sergio Bowen - 11/16/[address] (Signed) Sergio Bowen - 11/16/21 DI Result CC 04/30/21 Lumbar Spine MRI (Signed) Ra Guthrie - 11/28/20 Lumbar Spine MRI (Cancelled) 11/28/20 Lumbar Spine X-Ray (Signed) ReneeHenry - 05/17/20 Knee X-Ray (Signed) ReneeHenry - 05/17/20 Knee X-Ray (Signed) Henry Renee - 05/17/20 Hip X-Ray (Signed) Henry Renee - 05/17/20 Knee X-Ray (Signed) Ben Mcpherson - 06/06/19 Knee X-Ray (Signed) Ben Mcpherson - 06/06/19 Hand X-Ray (Signed) Ben Mcpherson - 06/06/19 Hand X-Ray (Signed) Ben Mcpherson - 06/06/19 Ankle X-Ray (Signed) Ben Mcpherson - 06/06/19 Ankle X-Ray (Signed) Ben Mcpherson - 06/06/19 Launch?[place] [address] CT Scan Report Signed Patient: Raj Bui MR#: [id number] : 1965 Acct:[id number] Age/Sex: 56 / M Date of Service: 11/16/21 Loc: Accession Number: [id number] ?? Procedure: CT soft tissue neck w con Ordering Provider: Brendan Gonzales D.O. PROCEDURE:? CT SOFT TISSUE NECK W CON ? INDICATIONS:? large dental abscess, tense left anterior neck ? TECHNIQUE:? After the administration of intravenous contrast, 3.0 mm axial sections acquired from the sella to the aortic arch.? Additional oblique axial 3.0 mm sections acquired through the pharynx.? 3 mm thick coronal and sagittal reformats were generated.? For radiation dose reduction, the following was used:? automated exposure control.? ? COMPARISON:? None. ? FINDINGS:? Image quality:? Excellent.? ? Lymph nodes:? Reactive left cervical adenopathy.? No lymph nodes suspicious for malignancy. ? Vessels:? Visualized vasculature appears patent.? ? Neck spaces:? The oropharynx, nasopharynx, and pharynx demonstrate no mucosal lesions.? However, the airway is deviated slightly to the right and at gets quite narrowed The vocal cords, false vocal cords, pyriform sinuses, epiglottis, vallecula, and tongue base all appear normal.? Extramucosal spaces appear unremarkable.? ? Glands:? The parotid and submandibular glands appear normal.? Thyroid gland is unremarkable as visualized.? ? Miscellaneous:? Visualized brain and orbits appear normal.? Lung apices appear clear.? There is extensive gas in the tissues immediately inferior to the left body of the mandible with gas present medial to the left body of mandible at the base of the tongue.? The most posterior left inferior molar has significant periapical lucency.? There is a cavity within this tooth.? There is a probable periapical abscess. ? Bones:? No suspicious bony lesions.? Visualized sinuses and mastoids appear unremarkable. ? ? ? IMPRESSION:? ? 1. Extensive gas present in the tissues superficial and deep to the body of the left mandible..? Consider necrotizing fasciitis of the tissues subjacent to the mandible.? There is a probable periapical abscess involving the most posterior inferior left tooth. ? 2. There is mild deviation of the air column to the right and there is narrowing of the air,. ? Comment: Findings were discussed with Dr. Gonzales on? 11/16/2021 at 1929 hours. ? Dictated by: Sergio Bowen M.D. on 11/16/2021 at 19:18 ? ? Approved by: Sergio Bowen M.D. on 11/16/2021 at 19:32 ? MDM Narrative Medical decision making narrative: 56-year-old male diabetic patient presents with family and rapid progression of left anterior neck pain and swelling, fracture tooth 1 week ago. Feeling unwell, guarding Airway in controlling secretions but presenting significant concern for potential of worsening condition. Septic orders including coverage for NSTI with imaging performed. CT demonstrates inflammatory process with gas producing organism and displacement of airway. Patient intubated, antibiotics, fluids, steroids on board. COVID negative. Airlift to transport patient to [facility] for definitive care Critical Care Time Critical Care Time Critical Care Time: Yes Total Critical Care Time: 60 Attestation: The high probability of a clinically significant, sudden or life threatening deterioration of the [CV] system(s) required my full and direct attention, intervention and personal management. The aggregate critical care time was [60] minutes. This time is in addition to time spent performing reported procedures but includes the following: [x] Data Review and interpretation [x] Patient assessment and monitoring of vital signs [x] Documentation [x] Medication orders and management Discharge Plan Departure Patient Disposition: [facility] Clinical Impression: Necrotizing soft tissue infection, Neck infection, At risk for difficult intubation Prescriptions: No Action (DME) Precision Point Of Care Test Strip See Rx Instructions .ROUTE .MEDSUPPLY Qty: 400 3RF Rx Instructions: use to check blood sugar 4x a day with Freestyle system (DME) lancets 31 gauge misc See Rx Instructions .ROUTE .MEDSUPPLY Qty: 400 3RF Rx Instructions: use to check blood sugar 4x a day, brand per ins docusate sodium 100 mg capsule 100 mg PO .COMPLEX PRNQty: 0 0RF Rx Instructions: Patient reports taking six a day.; (DME) FreeStyle Alex 14 Day Magnolia Misc See Rx Instructions .ROUTE .MEDSUPPLY Qty: 1 4RF Rx Instructions: Use as directed to monitor blood glucose (DME) disabled parking permit See Rx Instructions .Route .MEDSUPPLY Qty: 1 0RF Rx Instructions: As directed (DME) FreeStyle Alex 14 Day Sensor Kit See Rx Instructions .ROUTE .MEDSUPPLY Qty: 2 11RF Rx Instructions: Use as directed to monitor blood glucose, Dispense 2 sensors (28days) bupropion HCl [Wellbutrin XL] 150 mg tablet extended release 24 hr 150 mg PO QAM Qty: 90 1RF rosuvastatin 10 mg tablet 10 mg PO DAILY Qty: 90 3RF omeprazole 20 mg capsule,delayed release(DR/EC) 20 mg PO BID PRN (Reason: acid reflux) Qty: 180 3RF amitriptyline 100 mg tablet 100 mg PO BEDTIME Qty: 90 3RF clonazepam 0.5 mg tablet 0.5 mg PO TID PRN (Reason: anxiety) Qty: 90 0RF duloxetine 60 mg capsule,delayed release(DR/EC) See Rx Instructions .ROUTE .COMPLEX Qty: 90 3RF Dose Instruction: take 1 capsule by mouth once daily Rx Instructions: take 1 capsule by mouth once daily meloxicam 15 mg tablet 15 mg PO DAILY PRN (Reason: pain) Qty: 90 3RF Rx Instructions: take one tablet by mouth daily. sennosides-docusate sodium [Colace 2-In-1] 8.6-50 mg tablet 1 tab-cap PO .COMPLEX 0RF Rx Instructions: Patient reports taking six capsules daily. tadalafil [Cialis] 5 mg tablet 5 mg PO DAILY PRN (Reason: sexual activity) Qty: 20 0RF Rx Instructions: DID NOT tolerate viagra. take 30min before sexual activity; do not use more than 1 dose/24hrs (DME) [employer] 14 Day Sensor Kit See Rx Instructions .ROUTE .MEDSUPPLY Qty: 2 3RF Rx Instructions: test blood sugar twice daily before meals dicyclomine 10 mg capsule 10 mg PO BID PRN (Reason: bloating, abdominal cramping) Qty: 60 0RF metformin 1,000 mg tablet 1,000 mg PO BID Qty: 180 3RF Referrals: Raj Rojas MD [Primary Care Provider] -
[2021-11-16 19:06] LABS: Add Manual Diff / Slide Review NO; Basophils Absolute Auto 0 /uL (0-100); Basophils Percent Auto 0.2 % (0-2); Eosinophils Absolute Auto 0 /uL (0-450); Eosinophils Percent Auto 0.1 % (2-4); Hematocrit 36.6 % (41-53); Hemoglobin 12.6 g/dL (13.5-17.5); Lymphocytes Absolute Auto 800 /uL (1100-4500); Lymphocytes Percent Auto 6.5 % (25-40); Mean Corpuscular HGB Conc 34.3 % (30-36); Mean Corpuscular Hemoglobin 30.2 PG (26-34); Mean Corpuscular Volume 88.1 fL (80-100); Monocytes Absolute Auto 900 /uL (0-900); Neutrophils Absolute Auto 10700 /uL (1500-7000); Neutrophils Percent Auto 86.2 % (50-75); Platelet Count 212 X10^3/uL (150-400); Red Blood Cell Count 4.15 X10^6/uL (4.5-5.9); Red Cell Distribution Width 13.5 % (11.6-14.8); White Blood Cell Count 12.4 X10^3/uL (4.5-11.0)
[2021-11-16 19:14] LABS: Alanine Aminotransferase 27 IU/L (<50); Albumin 4.3 g/dL (3.5-5.0); Albumin Globulin Ratio 1.3 (1.0-2.8); Alkaline Phosphatase 95 U/L (38-126); Aspartate Aminotransferase 23 IU/L (17-59); BUN Creatinine Ratio 23.2 (6-22); Bilirubin Total 0.7 mg/dL (0.2-1.3); Blood Urea Nitrogen 16 mg/dL (9-20); Carbon Dioxide 28 mmol/L (22-32); Chloride 94 mmol/L (98-107); Creatine Kinase 124 U/L (55-170); Estimated Glomerular Filt Rate > 60 mL/min (>60); Globulin 3.4 g/dL (1.7-4.1); Glucose 286 mg/dL (70-100); HEMOLYSIS < 15 (0-50); Lipase 25 U/L (23-300); Sodium 133 mmol/L (137-145); Total Protein 7.7 g/dL (6.3-8.2)
[2021-11-16 19:15] LABS: Lactate (Lactic Acid) 1.9 mmol/L (0.7-2.1)
[2021-11-16 19:26] LABS: Troponin I < 0.012 ng/mL (0.01-0.034)
[2021-11-16 19:29] LABS: CKMB % Relative Index 2.6 % (1.5-5.0); Creatine Kinase MB 3.21 ng/mL (<2.37)
[2021-11-16 19:31] LABS: Procalcitonin 0.22 ng/mL (<0.5)
[2021-11-16] MEDS: AMPICILLIN/SULBACTAM 3 GM 3 GM in SODIUM CHLORIDE 0.9% 100 ML IV (19:36)
[2021-11-16 19:50] LABS: COVID19 -Nasal RAPID Negative (Negative)
[2021-11-16] MEDS: GLYCOPYRROLATE 0.4 MG/2 ML VIAL IV (20:32)
[2021-11-16] MEDS: LIDOCAINE 2% INJ MDV 1 ML SUBCUT (20:32)
[2021-11-16] MEDS: OXYMETAZOLINE NASAL SPRAY 15 ML 2 SPRAYS NASAL (20:33)
[2021-11-16] MEDS: propofoL 1,000 MG/100 ML VIAL 2.708 MG IV (21:12)
[2021-11-16] MEDS: VANCOMYCIN 2,000 MG/400 ML PIGGYBACK 200 MG IV (21:12)
[2021-11-16] MEDS: CLINDAMYCIN 900 MG/50 ML PIGGYBACK 50 MG IV (21:32)
--- NOTE | 2021-11-16 21:40 | P.PCN_ITS ---
Procedures Date/Time Date of procedure: 11/16/21 Time of procedure: 20:40 General Procedure description: Awake nasal flexible fiberoptic laryngoscopy and oral intubation for submandibular/retropharnygeal abscess airway edema. Anesthesia called to evaluate airway on 56 yo diabetic man with 5 days swelling and pain derived from left lower molar abscess. CT imaging concerning for necrotizing fasciitis in retropharygeal space. CT also showed area of subglottic stenosis that was likely related to respiratory movement/image timing, however, given nature and location of airway edema, nasal flex fiberoptic bronch was performed to ensure airway patency and sizing for ET tube. Patient had no upper airway stridor in various upright and supine head positions and did not seem to have respiratory distress. Voice was strong but affected by swollen tongue. For nasal laryngoscopy, patient was positioned seated upright with ASA monitors in place. O2 via nasal canula @ 2 LPM initiated. Procedural sedation with 10mg ketamine, 1mg midazolam and 20mg propofol. Patient maintained consciousness and cooperation throughout. Bilateral nasal passages with prepped with atomized Afrin nasal decongestant and 2% topical lidocaine solution. 0.4mg glycopyrrolate given IV for control of secretions. Flex fiber optic was passed through right nare into nasopharynx and just superior to glottic opening. Vocal cords were visualized as symmetrical and patent. Bilateral abduction of vocal cords with sniffing. Phonation eee showed normal cord movement. Flex fiberoptic was advanced beyond the vocal cords into the trachea, revealing patent tracheal ring s with normal mucosa, large enough to easily fit a 8.0 ET tube. This procedure was concluded and patient was ask to reposition supine for rapid sequence induction and oral intubation. For intubation, patient was pre-oxygenated for 3 mintues. ASA continuous monitoring. Rapid sequence induction with 120mg propofol and 80 mg succinylcholine. Intubated using rigid optic stylet with 8.0 ET tube, secure 24cm at teeth. Bilateral breath sounds present. CO2 return (color change indicator and end tidal capnography). Hemodynamics and oxygenation remained stable and adequate through induction. Additional 1mg midazolam and 100mcg fentanyl given post-intubation for sedation until propofol infusion could be initiated. Patient tolerated all procedures well.
[2021-11-16 21:47] LABS: Appearance Urine UA CLEAR; Bilirubin Urine UA NEGATIVE (NEGATIVE); Color Urine UA YELLOW; Glucose Urine UA 1+ g/dL (Negative); Ketones Urine UA 1+ (NEGATIVE); Leukocyte Esterase Urine UA NEGATIVE (NEGATIVE); Nitrite Urine UA NEGATIVE (Negative); Occult Blood Urine UA NEGATIVE (Negative); Protein Urine UA 2+ (Negative); pH Urine UA 6.5 (4.5-8.0)
[2021-11-16 21:55] LABS: RBC Urine 0-1/HPF (0-5/HPF); WBC Urine None Seen (0-5/HPF)
[2021-11-16 21:56] LABS: Bacteria Urine Occasional (0-1); Culture Indicated Urine Cult Not Indicated
--- NOTE | 2021-11-16 23:14 | PC.NURSE ---
1999: Pt moved to room one after CT results reported. Anesthesia called to evaluate pt for intubation. Procedure/reasons explained to pt/spouse. Vitals and airway remain stable. Spouse at bedside. 2039: Procedure by anesthesia to use scope via nasal passage to evaluate airway. Assisted pt to sit up at bedside. Pt received 1mg Versed, 10mg Ketamine, 5mg propofol. Meds charted in note by anesthesia. MD Gonzales at bedside and RT at bedside. Pt returned to supine in bed, boosted and ready for intubation. Pt placed on capnography. 2058: Pre oxygenated via ambu bag/mask. 120mg propofol and 80mg Succinylcholine given by Anesthesia. Intubated with out complincations. Size 8 tube is 24cm at teeth and secured. Co2 return checked. Breath sounds equal bilaterally. 2101: 100mcg fentanyl and 1mg versed given for sedation. 2111: Propofol drip started per protocol 50mcg/kg/min 2144: Propofol drip decreased to 40mcg/kg/min as BP is 95 systolic 2144: OG tube placed without complication. 2154: Propofol drip decreased to 30mcg/kg/min as systolic BP is 90 systolic. Airlift arrived. 2204: BP increased to 98/59. Pt transferred to [employer] equipment. Spouse at bedside, given [employer] info/directions. 2214: RN walked with Airlift to [facility] to assist with transfer to helicopter per request. Pt vitals remain stable. Tolerating drip with final BP of 101/60
== END 2021-11-16 22:15 | disposition short-term general hospital (02) ==
PROVIDERS: Emergency Provider Emergency Medicine; PCP Family Medicine
DX: M72.6 Necrotizing fasciitis (principal); K04.6 Periapical abscess with sinus; E11.42 Type 2 diabetes mellitus with diabetic polyneuropathy; S02.5XXA Fracture of tooth (traumatic), initial encounter for closed fracture; X58.XXXA Exposure to other specified factors, initial encounter; Z20.822 Contact with and (suspected) exposure to COVID-19
CPT/HCPCS: 31500; 31575; 36415; 70450; 70491; 71045; 80053; 81001; 82550; 82553; 83605; 83690; 84145; 84484; 85025; 87040; 87635; 93005; 94002; 96361; 96365; 96366; 96368; 96375; 99284; 99291; 99292; C9803; A9270; J0295; J0330; J1100; J1885; J2250; J2704; J3010; Q9967

== ENCOUNTER → 2021-12-10 10:17 | Outpatient (CLI) | payer OTHER, SELFPAY ==
[2021-11-16 21:13] VITALS: PULSE 92; RESP 16; O2SAT 98
[2021-12-10 11:53] LABS: Add Manual Diff / Slide Review NO; Basophils Absolute Auto 0 /uL (0-100); Basophils Percent Auto 0.5 % (0-2); Eosinophils Absolute Auto 100 /uL (0-450); Eosinophils Percent Auto 1.6 % (2-4); Hematocrit 40.3 % (41-53); Hemoglobin 13.5 g/dL (13.5-17.5); Lymphocytes Absolute Auto 1500 /uL (1100-4500); Mean Corpuscular HGB Conc 33.4 % (30-36); Mean Corpuscular Hemoglobin 29.8 PG (26-34); Mean Corpuscular Volume 89.1 fL (80-100); Monocytes Absolute Auto 300 /uL (0-900); Monocytes Percent Auto 3.9 % (3-14); Neutrophils Absolute Auto 5800 /uL (1500-7000); Platelet Count 246 X10^3/uL (150-400); Red Blood Cell Count 4.52 X10^6/uL (4.5-5.9); Red Cell Distribution Width 14.1 % (11.6-14.8); White Blood Cell Count 7.8 X10^3/uL (4.5-11.0)
[2021-12-10 12:07] LABS: Hemoglobin A1C% w Est Avg Glu 8.9 % (4.0-6.0)
[2021-12-10 13:18] LABS: Alanine Aminotransferase 31 IU/L (<50); Albumin 4.7 g/dL (3.5-5.0); Albumin Globulin Ratio 1.6 (1.0-2.8); Alkaline Phosphatase 78 U/L (38-126); Aspartate Aminotransferase 26 IU/L (17-59); BUN Creatinine Ratio 20.3 (6-22); Bilirubin Total 0.5 mg/dL (0.2-1.3); Blood Urea Nitrogen 13 mg/dL (9-20); Calcium 9.4 mg/dL (8.4-10.2); Carbon Dioxide 29 mmol/L (22-32); Chloride 100 mmol/L (98-107); Estimated Glomerular Filt Rate > 60 mL/min (>60); Globulin 2.9 g/dL (1.7-4.1); Glucose 214 mg/dL (70-100); HEMOLYSIS < 15 (0-50); Potassium 4.1 mmol/L (3.4-5.1); Sodium 139 mmol/L (137-145); Total Protein 7.6 g/dL (6.3-8.2)
== END ==
PROVIDERS: PCP Family Medicine; Referring Provider Family Medicine; Visit Provider Family Medicine
DX: I10 Essential (primary) hypertension (principal); E11.9 Type 2 diabetes mellitus without complications; M79.89 Other specified soft tissue disorders
CPT/HCPCS: 36415; 80053; 83036; 85025

== ENCOUNTER → 2022-03-25 08:35 | Outpatient (CLI) | payer OTHER, SELFPAY ==
[2021-11-16 21:13] VITALS: PULSE 92; RESP 16; O2SAT 98
[2022-03-25 09:43] LABS: Hemoglobin A1C% w Est Avg Glu 7.7 % (4.0-6.0)
== END ==
PROVIDERS: Family Provider Family Medicine; PCP Family Medicine; Referring Provider Family Medicine; Visit Provider Family Medicine
DX: E11.9 Type 2 diabetes mellitus without complications (principal); G62.9 Polyneuropathy, unspecified
CPT/HCPCS: 36415; 83036

== ENCOUNTER → 2022-06-20 10:14 | Outpatient (CLI) | payer OTHER, SELFPAY ==
[2021-11-16 21:13] VITALS: PULSE 92; RESP 16; O2SAT 98
[2022-06-20 10:58] LABS: Hemoglobin A1C% w Est Avg Glu 7.6 % (4.0-6.0)
[2022-06-20 11:33] LABS: Alanine Aminotransferase 24 IU/L (<50); Albumin 4.4 g/dL (3.5-5.0); Albumin Globulin Ratio 1.5 (1.0-2.8); Alkaline Phosphatase 58 U/L (38-126); Aspartate Aminotransferase 20 IU/L (17-59); BUN Creatinine Ratio 22.5 (6-22); Bilirubin Total 0.4 mg/dL (0.2-1.3); Blood Urea Nitrogen 18 mg/dL (9-20); Calcium 9.2 mg/dL (8.4-10.2); Carbon Dioxide 25 mmol/L (22-32); Chloride 101 mmol/L (98-107); Estimated Glomerular Filt Rate > 60 mL/min (>60); Globulin 2.9 g/dL (1.7-4.1); Glucose 144 mg/dL (70-100); HEMOLYSIS < 15 (0-50); Lipase 44 U/L (23-300); Potassium 4.3 mmol/L (3.4-5.1); Sodium 139 mmol/L (137-145); Total Protein 7.3 g/dL (6.3-8.2)
[2022-06-20 11:56] LABS: Prostate Specific Antigen Scrn 1.26 ng/mL (0.1-4.0)
== END ==
PROVIDERS: Family Provider Family Medicine; PCP Family Medicine; Referring Provider Family Medicine; Visit Provider Family Medicine
DX: Z12.5 Encounter for screening for malignant neoplasm of prostate (principal); E11.9 Type 2 diabetes mellitus without complications; G62.9 Polyneuropathy, unspecified; G89.4 Chronic pain syndrome
CPT/HCPCS: 36415; 80053; 83036; 83690; G0103

== ENCOUNTER → 2022-09-23 10:52 | Outpatient (CLI) | payer OTHER, SELFPAY ==
[2021-11-16 21:13] VITALS: PULSE 92; RESP 16; O2SAT 98
[2022-09-23 12:38] LABS: Hemoglobin A1C% w Est Avg Glu 6.5 % (4.0-6.0)
[2022-09-23 13:17] LABS: Alanine Aminotransferase 19 IU/L (<50); Albumin 4.6 g/dL (3.5-5.0); Albumin Globulin Ratio 1.6 (1.0-2.8); Alkaline Phosphatase 62 U/L (38-126); Aspartate Aminotransferase 18 IU/L (17-59); BUN Creatinine Ratio 23.2 (6-22); Bilirubin Total 0.5 mg/dL (0.2-1.3); Blood Urea Nitrogen 16 mg/dL (9-20); Carbon Dioxide 26 mmol/L (22-32); Chloride 100 mmol/L (98-107); Cholesterol 140 mg/dL (140-199); Estimated Glomerular Filt Rate > 60 mL/min (>60); Globulin 2.9 g/dL (1.7-4.1); Glucose 109 mg/dL (70-100); HDL Cholesterol 55 mg/dL (40-60); HEMOLYSIS < 15 (0-50); LDL Cholesterol Calculated 41 mg/dL (<100); Potassium 4.1 mmol/L (3.4-5.1); Sodium 137 mmol/L (137-145); Total Protein 7.5 g/dL (6.3-8.2); Triglycerides 222 mg/dL (35-150)
== END ==
PROVIDERS: Family Provider Family Medicine; PCP Family Medicine; Referring Provider Family Medicine; Visit Provider Family Medicine
DX: E11.9 Type 2 diabetes mellitus without complications (principal); E78.2 Mixed hyperlipidemia; G62.9 Polyneuropathy, unspecified; G89.4 Chronic pain syndrome
CPT/HCPCS: 36415; 80053; 80061; 83036

== ENCOUNTER → 2023-01-30 12:07 | Outpatient (CLI) | payer OTHER, SELFPAY ==
[2021-11-16 21:13] VITALS: PULSE 92; RESP 16; O2SAT 98
[2023-01-30 13:52] LABS: Alanine Aminotransferase 20 IU/L (<50); Albumin 4.2 g/dL (3.5-5.0); Albumin Globulin Ratio 1.7 (1.0-2.8); Alkaline Phosphatase 65 U/L (38-126); Aspartate Aminotransferase 19 IU/L (17-59); BUN Creatinine Ratio 18.3 (6-22); Bilirubin Total 0.4 mg/dL (0.2-1.3); Blood Urea Nitrogen 13 mg/dL (9-20); C-Reactive Protein Quant < 0.5 mg/dL (<1.0); Calcium 9.4 mg/dL (8.4-10.2); Carbon Dioxide 28 mmol/L (22-32); Chloride 101 mmol/L (98-107); Estimated Glomerular Filt Rate > 60 mL/min (>60); Globulin 2.5 g/dL (1.7-4.1); Glucose 128 mg/dL (70-100); HEMOLYSIS < 15 (0-50); Potassium 4.7 mmol/L (3.4-5.1); Sodium 138 mmol/L (137-145); Total Protein 6.7 g/dL (6.3-8.2)
[2023-01-30 14:05] LABS: Rheumatoid Factor < 8.6 IU/mL (<12.0)
[2023-01-30 14:29] LABS: Erythrocyte Sedimentation Rate 15 MM/HR (0-15)
[2023-01-30 14:38] LABS: Vitamin B12 931 pg/mL (239-931)
[2023-01-31 04:09] LABS: Labcorp Hemoglobin (Hb) A1c 7.6 % (4.8-5.6)
[2023-01-31 23:08] LABS: CCP Antibodies IgG/IgA 4 units (0-19)
[2023-02-02 20:14] LABS: ANA Screen, IFA Positive (.)
== END ==
PROVIDERS: Family Provider Family Medicine; PCP Family Medicine; Referring Provider Family Medicine; Visit Provider Family Medicine
DX: G62.9 Polyneuropathy, unspecified (principal); G89.4 Chronic pain syndrome; M51.36 Other intervertebral disc degeneration, lumbar region; R29.898 Other symptoms and signs involving the musculoskeletal system; R20.8 Other disturbances of skin sensation; E11.9 Type 2 diabetes mellitus without complications; M54.50 Low back pain, unspecified
CPT/HCPCS: 36415; 80053; 82607; 83036; 85651; 86038; 86140; 86200; 86430

== ENCOUNTER → 2023-02-12 15:19 | Outpatient (CLI) | payer OTHER, SELFPAY ==
[2021-11-16 21:13] VITALS: PULSE 92; RESP 16; O2SAT 98
[2023-02-12 17:32] LABS: Creatinine Urine Random 25.9 mg/dL
[2023-02-12 17:40] LABS: Microalbumin Urine Random < 0.6 mg/dL (0-1.6)
== END ==
PROVIDERS: Family Provider Family Medicine; PCP Family Medicine; Referring Provider Family Medicine; Visit Provider Family Medicine
DX: R29.898 Other symptoms and signs involving the musculoskeletal system (principal); G62.9 Polyneuropathy, unspecified; R20.8 Other disturbances of skin sensation; E11.9 Type 2 diabetes mellitus without complications
CPT/HCPCS: 82043; 82570

== ENCOUNTER → 2023-05-28 14:52 | Outpatient (CLI) | payer OTHER, SELFPAY ==
[2021-11-16 21:13] VITALS: PULSE 92; RESP 16; O2SAT 98
[2023-05-28 15:25] LABS: Add Manual Diff / Slide Review NO; Basophils Absolute Auto 0 /uL (0-100); Basophils Percent Auto 0.4 % (0-2); Eosinophils Absolute Auto 300 /uL (0-450); Eosinophils Percent Auto 3.6 % (2-4); Hematocrit 39.4 % (41-53); Hemoglobin 13.5 g/dL (13.5-17.5); Lymphocytes Absolute Auto 1900 /uL (1100-4500); Lymphocytes Percent Auto 23.8 % (25-40); Mean Corpuscular HGB Conc 34.2 % (30-36); Mean Corpuscular Hemoglobin 29.2 PG (26-34); Mean Corpuscular Volume 85.4 fL (80-100); Monocytes Absolute Auto 400 /uL (0-900); Monocytes Percent Auto 5.6 % (3-14); Neutrophils Absolute Auto 5300 /uL (1500-7000); Neutrophils Percent Auto 66.6 % (50-75); Platelet Count 241 X10^3/uL (150-400); Red Blood Cell Count 4.61 X10^6/uL (4.5-5.9); Red Cell Distribution Width 14.4 % (11.6-14.8); White Blood Cell Count 7.9 X10^3/uL (4.5-11.0)
[2023-05-28 15:38] LABS: Alanine Aminotransferase 18 IU/L (<50); Albumin 4.6 g/dL (3.5-5.0); Albumin Globulin Ratio 1.6 (1.0-2.8); Alkaline Phosphatase 53 U/L (38-126); Aspartate Aminotransferase 19 IU/L (17-59); BUN Creatinine Ratio 16.7 (6-22); Bilirubin Total 0.4 mg/dL (0.2-1.3); Blood Urea Nitrogen 12 mg/dL (9-20); Calcium 9.6 mg/dL (8.4-10.2); Carbon Dioxide 25 mmol/L (22-32); Chloride 99 mmol/L (98-107); Estimated Glomerular Filt Rate > 60 mL/min (>60); Globulin 2.8 g/dL (1.7-4.1); Glucose 115 mg/dL (70-100); HEMOLYSIS < 15 (0-50); Potassium 4.5 mmol/L (3.4-5.1); Sodium 137 mmol/L (137-145); Total Protein 7.4 g/dL (6.3-8.2)
[2023-05-28 20:42] LABS: Hemoglobin A1C% w Est Avg Glu 8.1 % (4.0-6.0)
== END ==
PROVIDERS: Family Provider Family Medicine; PCP Family Medicine; Referring Provider Physician Assistant; Visit Provider Physician Assistant
DX: E11.9 Type 2 diabetes mellitus without complications (principal); I10 Essential (primary) hypertension
CPT/HCPCS: 36415; 80053; 83036; 85025

== ENCOUNTER → 2023-07-09 10:25 | Outpatient (CLI) | payer OTHER, SELFPAY ==
[2021-11-16 21:13] VITALS: PULSE 92; RESP 16; O2SAT 98
--- NOTE | 2023-07-09 10:27 | DI.RAD.S_ITS ---
PROCEDURE: XR CERVICAL SPINE 2V OR 3V INDICATIONS: Possible metal shards prior to MRI TECHNIQUE: 2 view(s) of the cervical spine were acquired. COMPARISON: None. FINDINGS: Bones: No fractures or dislocations to the T1 level. The lateral masses of C1 appear intact on the odontoid view. No suspicious bony lesions. Soft tissues: No prevertebral soft tissue swelling. IMPRESSION: No displaced fracture or traumatic subluxation. No radiopaque foreign bodies Approved by: Denny Jiang M.D. on 07/09/2023 at 19:21
--- NOTE | 2023-07-09 10:27 | DI.MRI.S_ITS ---
PROCEDURE: MR HEAD/BRAIN WO/W CON INDICATIONS: Polyneuropathy TECHNIQUE: Noncontrast axial T1 spin echo, axial T2 fast spin echo, sagittal and axial FLAIR, coronal T2 fast spin echo, axial gradient echo, axial diffusion and ADC through the brain. After the administration of contrast, axial and coronal and sagittal T1 spin echo with fat saturation through the brain. COMPARISON: None. FINDINGS: Image quality: Excellent. CSF spaces: Basal cisterns are patent. No extra-axial fluid collections. Ventricles are normal in size and shape. Brain: No midline shift. No intracranial bleeds or masses. No abnormal intracranial enhancement. There is cerebral volume loss for age. There is mild periventricular white matter chronic small vessel ischemic change. The brainstem appears normal. Diffusion-weighted images demonstrate no acute ischemic insults. No chronic ischemic insults. Normal intravascular flow voids are present. Skull and face: Calvarial marrow is normal in signal. Orbits appear normal. Sinuses: Mild diffuse paranasal sinus mucosal thickening. The mastoids appear clear. IMPRESSION: No cause for patient's symptoms is identified. No acute intracranial abnormalities. Age-related global volume loss and mild chronic microvascular ischemic changes. Dictated by: Jace Justin M.D. on 07/09/2023 at 15:43 Approved by: Jace Justin M.D. on 07/09/2023 at 15:46
--- NOTE | 2023-07-09 10:27 | DI.RAD.S_ITS ---
PROCEDURE: XR HAND RT 2V INDICATIONS: Possible metal shards prior to MRI TECHNIQUE: 3 views of the hand(s) acquired. COMPARISON: [facility], MIGUEL, XR HAND LT MIN 3V, 06/06/2019, 11:48. FINDINGS: Bones: No fractures or dislocations. No significant degenerative changes. Carpal bones are normally aligned. No suspicious bony lesions. Soft tissues: No suspicious soft tissue calcifications. IMPRESSION: 1. No acute abnormality. 2. No metallic densities. Dictated by: Leah Ramirez M.D. on 07/09/2023 at 11:16 Approved by: Leah Ramirez M.D. on 07/09/2023 at 11:16
--- NOTE | 2023-07-09 10:27 | DI.RAD.S_ITS ---
PROCEDURE: XR HUMERUS RT 2V INDICATIONS: Possible metal shards prior to MRI TECHNIQUE: 1 views of the humerus were acquired. COMPARISON: None. FINDINGS: Bones: No fractures or dislocations. No suspicious bony lesions. Soft tissues: No suspicious soft tissue calcifications. No radiopaque foreign body. IMPRESSION: No radiopaque foreign body. Dictated by: Arnel Arambula M.D. on 07/09/2023 at 17:34 Approved by: Arnel Arambula M.D. on 07/09/2023 at 17:35
--- NOTE | 2023-07-09 10:27 | DI.RAD.S_ITS ---
PROCEDURE: XR LUMBAR SPINE 2-3V INDICATIONS: Possible metal shards prior to MRI TECHNIQUE: 3 views of the lumbar spine were acquired. COMPARISON: [facility], [place], XR LUMBAR SPINE 2-3V, 05/17/2020, 11:04. FINDINGS: Bones: 5 [id number] vertebrae are present. There is normal bony alignment. No vertebral body compression fractures. No suspicious bony lesions. Soft tissues: Overlying bowel gas pattern is normal. No suspicious soft tissue calcifications. No radiopaque foreign bodies IMPRESSION: No radiopaque foreign bodies. Moderate fecal debris throughout the colon. No obstruction Approved by: Denny Jiang M.D. on 07/09/2023 at 19:22
--- NOTE | 2023-07-09 10:27 | DI.RAD.S_ITS ---
PROCEDURE: XR SKULL<4V INDICATIONS: Possible metal shards prior to MRI TECHNIQUE: 2 view(s) of the skull acquired. COMPARISON: None. FINDINGS: Bones: No fractures. No suspicious bony lesions. Visualized sinuses appear clear. Soft tissues: No soft tissue calcifications. No suspicious soft tissue densities. IMPRESSION: No radiopaque foreign bodies Approved by: Denny Jiang M.D. on 07/09/2023 at 19:23
--- NOTE | 2023-07-09 10:27 | DI.RAD.S_ITS ---
PROCEDURE: XR FOREARM RT 2V INDICATIONS: Possible metal shards prior to MRI TECHNIQUE: 2 views of the forearm were acquired. COMPARISON: None. FINDINGS: Bones: No fractures or dislocations. No suspicious bony lesions. Soft tissues: No suspicious soft tissue calcifications or masses. No metallic soft tissue foreign body identified. IMPRESSION: No acute bony abnormality. No metallic soft tissue foreign body identified. Dictated by: Tylor Will M.D. on 07/09/2023 at 11:27 Approved by: Tylor Will M.D. on 07/09/2023 at 11:28
--- NOTE | 2023-07-09 10:27 | DI.RAD.S_ITS ---
PROCEDURE: XR FOREARM LT 2V INDICATIONS: Possible metal shards prior to MRI TECHNIQUE: 2 views of the forearm were acquired. COMPARISON: None. FINDINGS: Bones: No fractures or dislocations. No suspicious bony lesions. Soft tissues: No suspicious soft tissue calcifications or masses. No metallic soft tissue foreign body identified. IMPRESSION: No acute bony abnormality. No metallic soft tissue foreign body identified. Dictated by: Tylor Will M.D. on 07/09/2023 at 11:27 Approved by: Tylor Will M.D. on 07/09/2023 at 11:27
--- NOTE | 2023-07-09 10:27 | DI.RAD.S_ITS ---
PROCEDURE: XR HAND LT 2V INDICATIONS: Possible metal shards prior to MRI TECHNIQUE: 3 views of the hand(s) acquired. COMPARISON: [facility], MIGUEL, XR HAND LT MIN 3V, 06/06/2019, 11:48. FINDINGS: Bones: No fractures or dislocations. Degenerative changes of the little finger interphalangeal joints. Carpal bones are normally aligned. No suspicious bony lesions. Soft tissues: No suspicious soft tissue calcifications. IMPRESSION: 1. No acute bony abnormality. 2. No metallic densities. Dictated by: Leah Ramirez M.D. on 07/09/2023 at 11:13 Approved by: Leah Ramirez M.D. on 07/09/2023 at 11:15
--- NOTE | 2023-07-09 10:27 | DI.RAD.S_ITS ---
PROCEDURE: XR THORACIC SPINE 2V INDICATIONS: Possible metal shards prior to MRI TECHNIQUE: 3 views of the thoracic spine were acquired. COMPARISON: None. FINDINGS: Bones: No fractures or dislocations. No suspicious bony lesions. 12 pairs of ribs are noted, and appear intact where visualized. Soft tissues: No paravertebral stripe thickening. IMPRESSION: No radiopaque foreign bodies Approved by: Denny Jiang M.D. on 07/09/2023 at 19:25
--- NOTE | 2023-07-09 10:27 | DI.RAD.S_ITS ---
PROCEDURE: XR HUMERUS LT 2V INDICATIONS: Possible metal shards prior to MRI TECHNIQUE: 1 views of the humerus were acquired. COMPARISON: None. FINDINGS: Bones: No fractures or dislocations. No suspicious bony lesions. Soft tissues: No suspicious soft tissue calcifications. No radiopaque foreign body. IMPRESSION: No radiopaque foreign body. Dictated by: Arnel Arambula M.D. on 07/09/2023 at 17:34 Approved by: Arnel Arambula M.D. on 07/09/2023 at 17:34
== END ==
PROVIDERS: Family Provider Family Medicine; PCP Family Medicine; Referring Provider Family Medicine; Visit Provider Family Medicine
DX: G62.9 Polyneuropathy, unspecified (principal); S00.95XA Superficial foreign body of unspecified part of head, initial encounter; S40.859A Superficial foreign body of unspecified upper arm, initial encounter; S20.459A Superficial foreign body of unspecified back wall of thorax, initial encounter; R20.8 Other disturbances of skin sensation; R29.898 Other symptoms and signs involving the musculoskeletal system
CPT/HCPCS: 70250; 70553; 72040; 72070; 72100; 73060; 73090; 73120; A9579

== ENCOUNTER → 2023-11-19 10:29 | Outpatient (CLI) | payer OTHER, SELFPAY ==
[2023-09-01 15:42] VITALS: PULSE 92; RESP 16; O2SAT 98
[2023-11-19 12:32] LABS: Cholesterol 130 mg/dL (140-199); HDL Cholesterol 50 mg/dL (40-60); LDL Cholesterol Calculated 55 mg/dL (<100); Triglycerides 125 mg/dL (35-150)
[2023-11-19 12:51] LABS: Hemoglobin A1C% w Est Avg Glu 7.2 % (4.0-6.0)
[2023-11-19 13:04] LABS: TSH w/ Reflex to FT4 0.62 uIU/mL (0.47-4.68)
[2023-11-19 13:18] LABS: Vitamin B12 936 pg/mL (239-931)
== END ==
PROVIDERS: Family Provider Family Medicine; PCP Family Medicine; Referring Provider Family Medicine; Visit Provider Family Medicine
DX: R29.898 Other symptoms and signs involving the musculoskeletal system (principal); E11.9 Type 2 diabetes mellitus without complications; G62.9 Polyneuropathy, unspecified; M51.36 Other intervertebral disc degeneration, lumbar region; G89.4 Chronic pain syndrome; M54.50 Low back pain, unspecified; F32.9 Major depressive disorder, single episode, unspecified; M25.50 Pain in unspecified joint
CPT/HCPCS: 36415; 80061; 82607; 83036; 84443

== ENCOUNTER → 2024-01-27 16:11 | Outpatient (ROUT) | payer OTHER, SELFPAY ==
[2023-11-24 13:35] VITALS: PULSE 92; RESP 16; O2SAT 98
[2024-01-27 16:23] LABS: Appearance Urine UA CLEAR; Bilirubin Urine UA NEGATIVE (NEGATIVE); Color Urine UA YELLOW; Glucose Urine UA 3+ g/dL (Negative); Ketones Urine UA TRACE (NEGATIVE); Leukocyte Esterase Urine UA NEGATIVE (NEGATIVE); Nitrite Urine UA NEGATIVE (Negative); Occult Blood Urine UA NEGATIVE (Negative); Protein Urine UA NEGATIVE (Negative); Urobilinogen Urine UA 0.2 E.U./dL (0.2)
[2024-01-27 16:34] LABS: Bacteria Urine Occasional (0-1); Culture Indicated Urine Cult Not Indicated; RBC Urine None Seen (0-5/HPF); Squamous Epithelial Cell Urine None Seen (0-5/HPF); Urine Volume 10mL (spun); WBC Urine 0-1/HPF (0-5/HPF)
== END ==
PROVIDERS: Physician Assistant; Family Provider Family Medicine; PCP Family Medicine; Visit Provider Family Medicine
DX: R10.9 Unspecified abdominal pain (principal); E11.9 Type 2 diabetes mellitus without complications
CPT/HCPCS: 81001

== ENCOUNTER → 2024-03-01 09:50 | Outpatient (CLI) | payer OTHER, SELFPAY ==
[2023-11-24 13:35] VITALS: PULSE 92; RESP 16; O2SAT 98
[2024-03-01 10:49] LABS: Hemoglobin A1C% w Est Avg Glu 7.8 % (4.0-6.0)
[2024-03-01 11:15] LABS: Alanine Aminotransferase 20 IU/L (<50); Albumin 4.4 g/dL (3.5-5.0); Albumin Globulin Ratio 1.8 (1.0-2.8); Alkaline Phosphatase 77 U/L (38-126); Aspartate Aminotransferase 16 IU/L (17-59); BUN Creatinine Ratio 17.8 (6-22); Bilirubin Total 0.6 mg/dL (0.2-1.3); Blood Urea Nitrogen 16 mg/dL (9-20); Calcium 9.2 mg/dL (8.4-10.2); Carbon Dioxide 26 mmol/L (22-32); Chloride 102 mmol/L (98-107); Estimated Glomerular Filt Rate > 60 mL/min (>60); Globulin 2.4 g/dL (1.7-4.1); Glucose 190 mg/dL (80-110); HEMOLYSIS < 15 (0-50); Potassium 4.2 mmol/L (3.4-5.1); Sodium 137 mmol/L (137-145); Total Protein 6.8 g/dL (6.3-8.2)
[2024-03-01 11:38] LABS: Prostate Specific Antigen Scrn 1.33 ng/mL (0.1-4.0)
== END ==
PROVIDERS: Family Provider Family Medicine; PCP Family Medicine; Referring Provider Family Medicine; Visit Provider Family Medicine
DX: E11.9 Type 2 diabetes mellitus without complications (principal); Z12.5 Encounter for screening for malignant neoplasm of prostate; R29.898 Other symptoms and signs involving the musculoskeletal system; G62.9 Polyneuropathy, unspecified; G89.4 Chronic pain syndrome; E78.2 Mixed hyperlipidemia
CPT/HCPCS: 36415; 80053; 83036; G0103

== ENCOUNTER → 2024-06-15 13:33 | Outpatient (CLI) | payer OTHER, SELFPAY ==
[2023-11-24 13:35] VITALS: PULSE 92; RESP 16; O2SAT 98
[2024-06-15 14:32] LABS: Add Manual Diff / Slide Review NO; Basophils Absolute Auto 0 /uL (0-100); Basophils Percent Auto 0.6 % (0-2); Eosinophils Absolute Auto 400 /uL (0-450); Eosinophils Percent Auto 5.5 % (2-4); Hemoglobin 15.9 g/dL (13.5-17.5); Lymphocytes Absolute Auto 1400 /uL (1100-4500); Lymphocytes Percent Auto 21.6 % (25-40); Mean Corpuscular HGB Conc 33.9 % (30-36); Mean Corpuscular Hemoglobin 29.8 PG (26-34); Mean Corpuscular Volume 87.8 fL (80-100); Monocytes Absolute Auto 500 /uL (0-900); Monocytes Percent Auto 7.3 % (3-14); Neutrophils Absolute Auto 4300 /uL (1500-7000); Platelet Count 213 X10^3/uL (150-400); Red Blood Cell Count 5.36 X10^6/uL (4.5-5.9); Red Cell Distribution Width 15.9 % (11.6-14.8); White Blood Cell Count 6.6 X10^3/uL (4.5-11.0)
[2024-06-15 14:41] LABS: Hemoglobin A1C% w Est Avg Glu 7.4 % (4.0-6.0)
[2024-06-15 14:55] LABS: HEMOLYSIS < 15 (0-50); Iron 81 ug/dL (49-181)
[2024-06-15 15:01] LABS: Alanine Aminotransferase 19 IU/L (<50); Albumin 4.4 g/dL (3.5-5.0); Albumin Globulin Ratio 1.8 (1.0-2.8); Alkaline Phosphatase 77 U/L (38-126); Aspartate Aminotransferase 19 IU/L (17-59); BUN Creatinine Ratio 21.6 (6-22); Bilirubin Total 0.8 mg/dL (0.2-1.3); Blood Urea Nitrogen 19 mg/dL (9-20); C-Reactive Protein Quant < 0.5 mg/dL (<1.0); Calcium 9.5 mg/dL (8.4-10.2); Carbon Dioxide 29 mmol/L (22-32); Chloride 100 mmol/L (98-107); Estimated Glomerular Filt Rate > 60 mL/min (>60); Globulin 2.5 g/dL (1.7-4.1); Glucose 136 mg/dL (80-110); HEMOLYSIS < 15 (0-50); Potassium 4.4 mmol/L (3.4-5.1); Sodium 136 mmol/L (137-145); Total Protein 6.9 g/dL (6.3-8.2)
[2024-06-15 15:03] LABS: Rheumatoid Factor < 8.6 IU/mL (<12.0)
[2024-06-15 15:06] LABS: Percent Iron Saturation 23 % (20-50); Total Iron Binding Capacity 354 ug/dL (261-462); Transferrin 281 mg/dL (206-381)
[2024-06-15 15:32] LABS: Ferritin 21 ng/mL (18-464)
[2024-06-15 16:11] LABS: Erythrocyte Sedimentation Rate 5 MM/HR (0-15)
== END ==
PROVIDERS: Family Provider Family Medicine; PCP Family Medicine; Referring Provider Family Medicine; Visit Provider Family Medicine
DX: I10 Essential (primary) hypertension (principal); E11.9 Type 2 diabetes mellitus without complications; E78.2 Mixed hyperlipidemia; M25.561 Pain in right knee; M25.562 Pain in left knee; G62.9 Polyneuropathy, unspecified; M79.671 Pain in right foot; M79.672 Pain in left foot; M25.551 Pain in right hip; M25.552 Pain in left hip; G89.29 Other chronic pain; R79.0 Abnormal level of blood mineral; E61.1 Iron deficiency; M54.59 Other low back pain
CPT/HCPCS: 36415; 80053; 82728; 83036; 83540; 83550; 85025; 85651; 86140; 86200; 86430

== ENCOUNTER → 2024-10-13 11:55 | Outpatient (CLI) | payer OTHER, SELFPAY ==
[2023-11-24 13:35] VITALS: PULSE 92; RESP 16; O2SAT 98
[2024-10-13 13:07] LABS: Hemoglobin A1C% w Est Avg Glu 6.5 % (4.0-6.0)
[2024-10-13 13:09] LABS: Alanine Aminotransferase 25 IU/L (<50); Albumin 4.5 g/dL (3.5-5.0); Albumin Globulin Ratio 1.8 (1.0-2.8); Alkaline Phosphatase 75 U/L (38-126); Aspartate Aminotransferase 22 IU/L (17-59); BUN Creatinine Ratio 20.2 (6-22); Bilirubin Total 0.9 mg/dL (0.2-1.3); Blood Urea Nitrogen 20 mg/dL (9-20); Calcium 9.5 mg/dL (8.4-10.2); Carbon Dioxide 27 mmol/L (22-32); Chloride 102 mmol/L (98-107); Cholesterol 215 mg/dL (140-199); Estimated Glomerular Filt Rate > 60 mL/min (>60); Globulin 2.5 g/dL (1.7-4.1); Glucose 147 mg/dL (80-110); HDL Cholesterol 46 mg/dL (40-60); HEMOLYSIS < 15 (0-50); LDL Cholesterol Calculated 136 mg/dL (<100); Potassium 4.1 mmol/L (3.4-5.1); Sodium 137 mmol/L (137-145); Triglycerides 164 mg/dL (35-150)
== END ==
PROVIDERS: Family Provider Family Medicine; PCP Family Medicine; Referring Provider Family Medicine; Visit Provider Family Medicine
DX: E11.9 Type 2 diabetes mellitus without complications (principal); I10 Essential (primary) hypertension; E78.2 Mixed hyperlipidemia
CPT/HCPCS: 36415; 80053; 80061; 83036

== ENCOUNTER → 2024-10-14 10:06 | Outpatient (CLI) | payer OTHER, SELFPAY ==
[2023-11-24 13:35] VITALS: PULSE 92; RESP 16; O2SAT 98
[2024-10-14 12:08] LABS: Creatinine Urine Random 60.16 mg/dL
[2024-10-14 12:16] LABS: Microalbumin Urine Random < 0.6 mg/dL (0-1.6)
== END ==
PROVIDERS: Family Provider Family Medicine; PCP Family Medicine; Referring Provider Family Medicine; Visit Provider Family Medicine
DX: E11.9 Type 2 diabetes mellitus without complications (principal); I10 Essential (primary) hypertension
CPT/HCPCS: 82043; 82570

== ENCOUNTER → 2025-01-04 10:14 | Outpatient (CLI) | payer OTHER, SELFPAY ==
[2023-11-24 13:35] VITALS: PULSE 92; RESP 16; O2SAT 98
[2025-01-04 10:42] LABS: Hemoglobin A1C% w Est Avg Glu 6.4 % (4.0-6.0)
[2025-01-04 10:50] LABS: Alanine Aminotransferase 22 IU/L (<50); Albumin 4.5 g/dL (3.5-5.0); Alkaline Phosphatase 71 U/L (38-126); Aspartate Aminotransferase 22 IU/L (17-59); BUN Creatinine Ratio 23.6 (6-22); Bilirubin Total 0.9 mg/dL (0.2-1.3); Blood Urea Nitrogen 21 mg/dL (9-20); Calcium 9.2 mg/dL (8.4-10.2); Carbon Dioxide 27 mmol/L (22-32); Chloride 102 mmol/L (98-107); Cholesterol 118 mg/dL (140-199); Estimated Glomerular Filt Rate > 60 mL/min (>60); Globulin 2.2 g/dL (1.7-4.1); Glucose 140 mg/dL (70-99); HDL Cholesterol 44 mg/dL (40-60); HEMOLYSIS < 15 (0-50); LDL Cholesterol Calculated 38 mg/dL (<100); Sodium 139 mmol/L (137-145); Total Protein 6.7 g/dL (6.3-8.2); Triglycerides 179 mg/dL (35-150)
== END ==
PROVIDERS: Family Provider Family Medicine; PCP Family Medicine; Referring Provider Family Medicine; Visit Provider Family Medicine
DX: E11.9 Type 2 diabetes mellitus without complications (principal); I10 Essential (primary) hypertension; E78.2 Mixed hyperlipidemia; G62.9 Polyneuropathy, unspecified; G89.4 Chronic pain syndrome
CPT/HCPCS: 36415; 80053; 80061; 83036

== ENCOUNTER → 2025-01-12 10:51 | Outpatient (CLI) | payer OTHER, SELFPAY ==
[2023-11-24 13:35] VITALS: PULSE 92; RESP 16; O2SAT 98
[2025-01-12 13:47] LABS: Ur Creatinine Normal (Normal); Ur Specific Gravity Normal (Normal); Urine pH Normal (Normal)
[2025-01-12 13:48] LABS: UR Morphine/Opiate cutoff 300 Negative (Negative); Urine Amphetamines Negative (Negative); Urine Barbiturates Negative (Negative); Urine Benzodiazepines Negative (Negative); Urine Cocaine Negative (Negative); Urine MDMA Negative (Negative); Urine Methadone Negative (Negative); Urine Methamphetamines Negative (Negative); Urine Oxycodone Positive (Negative); Urine Phencyclidine Negative (Negative); Urine Tetrahydrocannabinol Negative (Negative); Urine Tricyclic Antidepressant Positive (Negative)
== END ==
PROVIDERS: Family Provider Family Medicine; PCP Family Medicine; Referring Provider Family Medicine; Visit Provider Family Medicine
DX: G89.29 Other chronic pain (principal); G62.9 Polyneuropathy, unspecified; E11.9 Type 2 diabetes mellitus without complications; I10 Essential (primary) hypertension; M25.551 Pain in right hip; M25.552 Pain in left hip; E78.2 Mixed hyperlipidemia; M54.50 Low back pain, unspecified; F11.90 Opioid use, unspecified, uncomplicated
CPT/HCPCS: 80305

== ENCOUNTER → 2025-06-27 11:03 | Outpatient (CLI) | payer OTHER, SELFPAY ==
[2025-04-04 13:17] VITALS: PULSE 92; RESP 16; O2SAT 98
[2025-06-27 12:31] LABS: Hemoglobin A1C% w Est Avg Glu 6.8 % (4.0-6.0)
[2025-06-27 12:38] LABS: Alanine Aminotransferase 22 IU/L (<50); Albumin 4.6 g/dL (3.5-5.0); Albumin Globulin Ratio 1.6 (1.0-2.8); Alkaline Phosphatase 73 U/L (38-126); Blood Urea Nitrogen 20 mg/dL (9-20); Calcium 9.3 mg/dL (8.4-10.2); Carbon Dioxide 26 mmol/L (22-32); Chloride 101 mmol/L (98-107); Estimated Glomerular Filt Rate > 60 mL/min (>60); Globulin 2.8 g/dL (1.7-4.1); Glucose 135 mg/dL (70-99); HEMOLYSIS < 15 (0-50); Potassium 4.1 mmol/L (3.4-5.1); Sodium 139 mmol/L (137-145); Total Protein 7.4 g/dL (6.3-8.2)
== END ==
PROVIDERS: Family Provider Family Medicine; PCP Family Medicine; Referring Provider Family Medicine; Visit Provider Family Medicine
DX: Z12.5 Encounter for screening for malignant neoplasm of prostate (principal); E11.9 Type 2 diabetes mellitus without complications; R29.898 Other symptoms and signs involving the musculoskeletal system; G62.9 Polyneuropathy, unspecified; G89.4 Chronic pain syndrome; M25.551 Pain in right hip; M25.552 Pain in left hip; G89.29 Other chronic pain; E78.2 Mixed hyperlipidemia; I10 Essential (primary) hypertension; F11.90 Opioid use, unspecified, uncomplicated
CPT/HCPCS: 36415; 80053; 83036; G0103